=== PATIENT | male | born 1935 | race Caucasian/White ===

== ENCOUNTER 2019-02-22 10:22 | Emergency (ER) | payer OTHER ==
--- OUTSIDE RECORDS SUMMARY | 2019-02-22 10:24 | XMS REPORT ---
:1935 [facility] Address [address] [place] [address] Care Team Providers Name Role Phone Unavailable Unavailable Unavailable Payers Payer Name Policy Type Policy Number Effective Date Expiration Date Problems This patient has no known problems. Allergies, Adverse Reactions, Alerts Allergy Allergy Status Severity Reaction(s) Onset Inactive Treating Comments Name Type Date Date Clinician No Known DA Active U 2018-11 Allergies - 00:00:0 0 No Known DA Active U 2018-10 Allergies -23 00:00:0 0 No Known DA Active U 2018-07 Allergies - 00:00:0 0 Medications This patient has no known medications. Results Test Description Test Time Test Comments Text Results Atomic Results Result Comments BASIC METABOLIC PANEL 2018-12-10 07:05:00 Test Item Value Reference Range Comments SODIUM (test code=NA) 139 mmol/L 136-145 POTASSIUM (test code=K) 4.9 mmol/L 3.5-5.1 CHLORIDE (test code=CL) 104.0 mmol/L 98-107 CARBON DIOXIDE (test code=CO2) 28.1 mmol/L 21-32 GLUCOSE (test code=GLU) 123 mg/dL 70-110 BLOOD UREA NITROGEN (test 20 mg/dL 7-18 code=BUN) GLOMERULAR FILTRATION RATE (test 66.3 >60 Unit of measure: mL/min/1.73 code=GFR) [id number] Range:Healthy Adults >90 mL/min/1.73 m2 For Chronic Kidney Disease: Stage II Mild Decrease in GFR 60-90 Stage III Moderate Decrease in GFR 30-59 Stage IV Severe Decrease in GFR 15-29 Stage V Kidney Failure <15 CREATININE (test code=CREAT) 1.07 mg/dL 0.55-1.30 CALCIUM (test code=CA) 8.0 mg/dL 8.2-10.1 HGB [id number] 05:52:00 Test Item Value Reference Range Comments HEMOGLOBIN (test code=HGB) 11.9 g/dL 12-16 HEMATOCRIT (test code=HCT) 34.2 % 37-47 COMPREHENSIVE METABOLIC [id number] 15:28:00 Test Item Value Reference Range Comments SODIUM (test code=NA) 142 mmol/L 136-145 POTASSIUM (test code=K) 4.2 mmol/L 3.5-5.1 CHLORIDE (test code=CL) 103.0 mmol/L 98-107 CARBON DIOXIDE (test code=CO2) 29.8 mmol/L 21-32 GLUCOSE (test code=GLU) 103 mg/dL 70-110 BLOOD UREA NITROGEN (test 17 mg/dL 7-18 code=BUN) GLOMERULAR FILTRATION RATE 77.0 >60 Unit of measure: (test code=GFR) mL/min/1.73 [id number] Range:Healthy Adults >90 mL/min/1.73 m2 For Chronic Kidney Disease: Stage II Mild Decrease in GFR 60-90 Stage III Moderate Decrease in GFR 30-59 Stage IV Severe Decrease in GFR 15-29 Stage V Kidney Failure <15 CREATININE (test code=CREAT) 0.94 mg/dL 0.55-1.30 TOTAL PROTEIN (test code=PROT) 6.7 g/dL 6.4-8.2 ALBUMIN (test code=ALB) 4.2 g/dL 3.4-5.0 GLOBULIN (test code=GLOB) 2.5 g/dL 2.2-4.2 ALBUMIN/GLOBULIN RATIO (test 1.7 0.7-2.0 code=A/G) CALCIUM (test code=CA) 8.8 mg/dL 8.2-10.1 BILIRUBIN TOTAL (test 1.00 mg/dL 0.2-1.00 code=BILT) SGOT/AST (test code=AST) 24.0 U/L 15-37 SGPT/ALT (test code=ALT) 30.0 U/L 78 Please note new normal range. ALKALINE PHOSPHATASE TOTAL 175 U/L 46-116 (test code=ALKP) PROTHROMBIN [id number] 14:57:00 Test Item Value Reference Range Comments PROTHROMBIN TIME PATIENT 12.0 secs 10.1-12.5 (test code=PTP) INTERNATIONAL NORMAL RATIO 1.06 <2.0 RECOMMENDED THERAPEUTIC RANGE (test code=INR) FOR ORAL ANTICOAGULANTTREATMENT: CONDITION INRProphylaxis of venous thrombosis in 2.0 - 3.0 high-risk medical or surgical patientsTreatment of venous thrombosis 2.0 - 3.0Prevention of embolism 2.0 - 3.0Prevention of recurrent embolism, or 3.0 - 4.5 patients with mechanical prosthetic intravascular valves IS PATIENT ON ANTICOAGULANTS ? [facility] been notified if Patient is on Heparin Drip? NOIf Yes, orderCBC, OCCULT BLOOD, PT every other day NTHROMBOPLASTIN TIME [id number] 14:57:00 Test Item Value Reference Range Comments PTT ACTIVATED (test code=APTT) 29.9 secs 24.9-37.0 IS PATIENT ON ANTICOAGULANTS ? [facility] been notified if Patient is on Heparin Drip? NOIf Yes, orderCBC, OCCULT BLOOD, PT every other day NCBC W/AUTO [id number] 14:32:00 Test Item Value Reference Range Comments WHITE BLOOD CELL (test code=WBC) 4.0 K/mm3 5.7-10.5 RED BLOOD CELL (test code=RBC) 4.22 M/mm3 4.2-5.4 HEMOGLOBIN (test code=HGB) 13.6 g/dL 12-16 HEMATOCRIT (test code=HCT) 40.0 % 37-47 MEAN CELL VOLUME (test code=MCV) 95 fL 80-98 MEAN CELL HGB (test code=MCH) 32.2 pg 27-34 MEAN CELL HGB CONCENTRATION (test code=MCHC) 34.0 g/dL 30.8-34.1 RED CELL DISTRIBUTION WIDTH (test code=RDW) 13.0 % 11-16 PLT (test code=PLT) 129 K/mm3 130-400 MEAN PLATELET VOLUME (test code=MPV) 9.7 fL 8.9-12.1 NEUTROPHIL % (test code=NT%) 65.1 % 45-70 LYMPHOCYTE % (test code=LY%) 19.9 % 20-40 MONOCYTE % (test code=MO%) 12.4 % 3-10 EOSINOPHIL % (test code=EO%) 1.8 % 1-5 BASOPHIL % (test code=BA%) 0.5 % 0.0-1.1 NEUTROPHIL # (test code=NT#) 2.58 K/mm3 2.00-7.50 LYMPHOCYTE # (test code=LY#) 0.79 K/mm3 1.50-4.00 MONOCYTE # (test code=MO#) 0.49 K/mm3 0.2-0.8 EOSINOPHIL # (test code=EO#) 0.07 K/mm3 0.04-0.4 BASOPHIL # (test code=BA#) 0.02 K/mm3 0.02-0.10 MANUAL DIFF REQUIRED (test code=MDIFF) NO MANUAL DIFF NUCLEATED RED BLOOD CELL (test code=NRBC) 0 % 0-0 - MRI LW JNT W/O CONT [id number] 13:47:00 Patient Name: XIMENA SUMMERS Unit No: [id number] EXAMS: CPT CODE: [id number] MRI LW JNT W/[place] [id number] TECHNIQUE: Multiplanar, multisequence MRI of the left knee without contrast. COMPARISON: MR dated 08/08/2018 FINDINGS: Menisci: Interval postoperative changes of medial meniscectomy involving the posterior horn. There is residual/recurrent tear of the body and posterior horn. The posterior root is diminutive in appearance. No definite lateral meniscal tear visualized. Ligament and tendons : ACL and PCL are intact. There is increased signal of proximal MCL without definite tear. LCL is intact. Extensor mechanism is unremarkable. Cartilage/ bone: Multifocal patellar cartilage degeneration is similar, predominantly involving the patellar apex and lateral patellar facet. The trochlear cartilage is maintained. Broad high-grade cartilage loss of the medial compartment is demonstrated diffusely, significantly increased from prior exam with pronounced subchondral edema , preferentially involving the medial femoral condyle. Mild lateral compartment cartilage degeneration is similar. No acute fracture visualized. Other: Large joint effusion is present with evidence of synovitis. IMPRESSION: 1. Interval partial medial meniscectomy with residual/recurrent tear of the posterior horn and body of the medial meniscus. 2. Progression in broad high-grade cartilage degeneration of the medial compartment with pronounced subchondral edema of the medial femoral condyle. 3. Other chronic findings as described. at 1347 Reported and signed by: Luis M Emerson M.D. CC: Jaquelin Mobley MD; Raul Paz MD Technologist: LISSET DOMINGUEZ. RT(R ) Transcribed D/ (9612) t.CARMELR.RACHEALJ [facility] NAME: XIMENA SUMMERS [address] [place] [address] PHYS: GOMMU.Maame - Jaquelin Mobley : 1935 AGE: 83 SEX : M [place] [address] LOC: Y.MRI PHONE #: [phone] EXAM DATE: 10/09/2018STATUS: DEP CLI FAX #: [phone] RAD #: D/C DT PAGE1 Signed Report Patient Name: XIMENA SUMMERS Unit No: [id number] EXAMS: CPT CODE: [id number] MRI LW JNT W/[place] [id number] <Continued> Orig Print D/T: S: 2018 (2579) [facility] NAME: XIMENA SUMMERS [address] [place] [address] PHYS: GOMMU.Jaquelin Li : 1935 AGE: 83 SEX: [place]arius[place] [address] LOC: Y.MRI PHONE #: [phone] EXAM DATE: 10/09/2018 STATUS: DEP CLI FAX #: [phone] RAD #: D/C DT PAGE 2 Signed Report- MRI LW JNT W/O CONT [id number] 15 :55:00 Patient Name: XIMENA SUMMERS Unit No: [id number] EXAMS: CPT CODE: [id number] MRI LW JNT W/[place] [id number] MRI OF THE LEFT KNEE DIAGNOSIS: 1. Complex tear of the medial meniscus with horizontal tearing of the body through the tibial articular surface and of the posterior horn through the tibial articular surface as well as radial tear of the posterior root. 2. 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 There is subchondral cyst formation in the patella. Stress edema is seen in the medial tibial plateau. A moderate to large joint effusion is present without evidence for a loose body. COMMENT: COMPARISON: No prior exams available. Scans were performed in the sagittal, axial and coronal planes utilizing T1, spin density with fat saturation and T2-weighted pulse sequences. Bony and hyaline cartilage abnormalities are present as noted. The body and posterior horn of the medial meniscus is torn. There is degenerative signal in the anterior horn which may represent intrasubstance tearing. The lateral meniscus is within normal limits in appearance. No abnormality is seen involving the anterior or posterior cruciate or medial or lateral collateral ligaments. The quadriceps and patellar tendons are intact. There is distal quadriceps tendinosis. Fluid and edema are seen anterior to the patella and patellar tendon consistent with bursitis. at 1559 Reported and signed by: Bakari Alva MD CC: Jaquelin Mobley MD; Raul Paz MD Technologist: ANNA VICENTE MRI Transcribed D/ (6789) Eddie [facility] NAME: XIMENA SUMMERS [address] [facility] PHYS: GOMMU. - Jaquelin Mobley : 1935 AGE: 83 SEX: M [place], [place] [address] LOC: Y.MRI PHONE #: [phone] EXAM DATE: STATUS: REG CLI FAX #:[phone] RAD #: D/C DT PAGE 1 Signed Report Patient Name: XIMENA SUMMERS Unit No: [id number] EXAMS: CPT CODE : [id number] MRI LW JNT W/[place] [address] <Continued> Orig Print D/T: S: 08/08/2018 (1590) [facility]: XIMENA SUMMERS [address] [facility] PHYS: GOMMU. - Jaquelin Mobley : 1935 AGE: 83 SEX:M [place], [place] [address] LOC: Y.MRI PHONE #: [phone] EXAM DATE: 08/08/2018 STATUS: REG CLI FAX #: [phone] RAD #: D/C DT PAGE 2 Signed Report
--- NOTE | 2019-02-22 11:57 | ER ---
Nurse's Notes [facility] Name: Devaughn Moralez Age: 83 yrs Sex: Male : 1935 Arrival Date: 02/22/2019 Time: 10:25 Bed 19 Private MD: Raul Paz Diagnosis: Edema, unspecified;Tinea corporis Presentation: 02/22 10:31 Presenting complaint: Patient states: I think I have a ringworm on my left foot. jl7 Transition of care: patient was not received from another setting of care. Onset of symptoms was February 20, 2019. Risk Assessment: Do you want to hurt yourself or someone else? Patient reports no desire to harm self or others. Initial Sepsis Screen: Does the patient meet any 2 criteria? No. Patient's initial sepsis screen is negative. Does the patient have a suspected source of infection? No. Patient's initial sepsis screen is negative. Care prior to arrival: None. 10:31 Method Of Arrival: Ambulatory [facility] 10:31 Acuity: TERRENCE 4 jl7 Triage Assessment: 10:33 General: Appears in no apparent distress. uncomfortable, Behavior is calm, cooperative, jl7 appropriate for age. Pain: Denies pain. Historical: - Allergies: 10:33 No Known Allergies; jl7 - Home Meds: 10:33 finasteride oral oral [Active]; atorvastatin oral oral [Active]; tamsulosin 0.4 mg oral jl7 cp24 1 cap once daily [Active]; - PMHx: 10:33 High Cholesterol; jl7 - Immunization history:: Adult Immunizations up to date. - Social history:: Smoking status: Patient/guardian denies using tobacco. - Ebola Screening: : No symptoms or risks identified at this time. - Family history:: not pertinent. Screenin:15 Abuse screen: Denies threats or abuse. Denies injuries from another. Nutritional ph screening: No deficits noted. Tuberculosis screening: No symptoms or risk factors identified. Fall Risk None identified. Assessment: 11:10 General: Appears in no apparent distress. comfortable, Behavior is calm, cooperative, ph appropriate for age, Denies fever, feeling ill. Pain: Complains of pain in left leg. Neuro:. 11:10 Neuro: Level of Consciousness is awake, alert, obeys commands, Oriented to person, ph place, time, situation. Cardiovascular: Capillary refill < 3 seconds in bilateral fingers Edema is 1+ to right knee and right midcalf. Respiratory: Airway is patent Respiratory effort is even, unlabored, Denies shortness of breath. GI: No signs and/or symptoms were reported involving the gastrointestinal system. Derm: Skin is healthy with good turgor, Skin is pink, warm \T\ dry. Rash noted that is red, raised, on dorsum of left foot. Musculoskeletal: Circulation, motion, and sensation intact. Range of motion: intact in all extremities. Vital Signs: 10:33 BP 146 / 66; Pulse 79; Resp 17 S; Temp 97.1(TE); Pulse Ox 99% on R/A; Weight 103.42 kg jl7 (R); Height 6 ft. 0 in. (182.88 cm) (R); Pain 0/10; 11:55 BP 155 / 88; Pulse 72; Resp 18; Temp 97.8(O); Pulse Ox 96% ; mh5 10:33 Body Mass Index 30.92 (103.42 kg, 182.88 cm) 7 ED Course: 10:25 Patient arrived in ED. mr 10:26 Raul Paz MD is Private Physician. mr 10:27 Amauri Rascon MD is Attending Physician. eros 10:32 Triage completed. jl7 10:33 Arm band placed on right wrist. jl7 11:23 Paulina Jones, RN is Primary Nurse. ph 11:48 US Extremity Venous Unilateral Ltd In Process Unspecified. EDMS 11:56 Raul Paz MD is Referral Physician. eros 11:56 Patient has correct armband on for positive identification. Bed in low position. Call 5 light in reach. Side rails up X 1. Pulse ox on. NIBP on. 12:15 No provider procedures requiring assistance completed. Patient did not have IV access ph during this emergency room visit. Administered Medications: 12:16 Drug: Mycolog II 1 application Route: Topical; Site: affected area; ph 12:16 Follow up: Response: No adverse reaction ph Outcome: 11:56 Discharge ordered by . eros 12:17 Patient left the ED. ph 12:17 Discharged to home ambulatory. ph 12:17 Condition: good 12:17 Discharge instructions given to patient, Instructed on discharge instructions, follow up and referral plans. medication usage, Demonstrated understanding of instructions, follow-up care, medications, Prescriptions given X 1. Signatures: Dispatcher [employer] Amauri Brandt MD MD cha Rivera, Paulina Jama RN RN ph Martinez, Maria [facility] Mindi Barclay RN RN jl7 Corrections: (The following items were deleted from the chart) 19:16 11:10 Pain: Denies pain. [facility]
--- NOTE | 2019-02-22 11:58 | EDPHYS ---
Physician Documentation [facility] Name: Devaughn Moralez Age: 83 yrs Sex: Male : 1935 Arrival Date: 02/22/2019 Time: 10:25 Bed 19 Private MD: Raul Paz ED Physician Amauri Rascon HPI: 02/22 11:01 This 83 yrs old Male presents to ER via Ambulatory with complaints of eros Ringworm. 11:01 The patient presents with decreased range of motion, pain, swelling, tenderness. The eros complaints affect the lateral aspect of left thigh, lateral aspect of left knee, lateral aspect of left calf, left lateral ankle, lateral aspect of left foot, left quadriceps, left knee, left marie, anterior aspect of left ankle and dorsum of left foot. Context: The problem was sustained at an unknown site. Onset: The symptoms/episode began/occurred 2 week(s) ago. Modifying factors: The symptoms are alleviated by nothing. the symptoms are aggravated by nothing. Associated signs and symptoms: The patient has no apparent associated signs or symptoms. Severity of symptoms: At their worst the symptoms were mild, moderate, in the emergency department the symptoms have resolved. Historical: - Allergies: 10:33 No Known Allergies; jl7 - Home Meds: 10:33 finasteride oral oral [Active]; atorvastatin oral oral [Active]; tamsulosin 0.4 mg oral jl7 cp24 1 cap once daily [Active]; - PMHx: 10:33 High Cholesterol; jl7 - Immunization history:: Adult Immunizations up to date. - Social history:: Smoking status: Patient/guardian denies using tobacco. - Ebola Screening: : No symptoms or risks identified at this time. - Family history:: not pertinent. ROS: 11:01 Constitutional: Negative for fever, chills, and weight loss, Eyes: Negative for injury, eros pain, redness, and discharge, ENT: Negative for injury, pain, and discharge, Neck: Negative for injury, pain, and swelling, Cardiovascular: Negative for chest pain, palpitations, and edema, Respiratory: Negative for shortness of breath, cough, wheezing, and pleuritic chest pain, Abdomen/GI: Negative for abdominal pain, nausea, vomiting, diarrhea, and constipation, Back: Negative for injury and pain, : Negative for injury, bleeding, discharge, and swelling, Skin: Negative for injury, rash, and discoloration, Neuro: Negative for headache, weakness, numbness, tingling, and seizure, Psych: Negative for depression, anxiety, suicide ideation, homicidal ideation, and hallucinations, Allergy/Immunology: Negative for hives, rash, and allergies, Endocrine: Negative for neck swelling, polydipsia, polyuria, polyphagia, and marked weight changes, Hematologic/Lymphatic: Negative for swollen nodes, abnormal bleeding, and unusual bruising. 11:01 MS/extremity: Positive for decreased range of motion, pain, swelling, tenderness, of the left leg. Exam: 11:01 Constitutional: This is a well developed, well nourished patient who is awake, alert, eros and in no acute distress. Head/Face: Normocephalic, atraumatic. Eyes: Pupils equal round and reactive to light, extra-ocular motions intact. Lids and lashes normal. Conjunctiva and sclera are non-icteric and not injected. Cornea within normal limits. Periorbital areas with no swelling, redness, or edema. ENT: Nares patent. No nasal discharge, no septal abnormalities noted. Tympanic membranes are normal and external auditory canals are clear. Oropharynx with no redness, swelling, or masses, exudates, or evidence of obstruction, uvula midline. Mucous membranes moist. Neck: Trachea midline, no thyromegaly or masses palpated, and no cervical lymphadenopathy. Supple, full range of motion without nuchal rigidity, or vertebral point tenderness. No Meningismus. Chest/axilla: Normal chest wall appearance and motion. Nontender with no deformity. No lesions are appreciated. Cardiovascular: Regular rate and rhythm with a normal S1 and S2. No gallops, murmurs, or rubs. Normal PMI, no JVD. No pulse deficits. Respiratory: Lungs have equal breath sounds bilaterally, clear to auscultation and percussion. No rales, rhonchi or wheezes noted. No increased work of breathing, no retractions or nasal flaring. Abdomen/GI: Soft, non-tender, with normal bowel sounds. No distension or tympany. No guarding or rebound. No evidence of tenderness throughout. Back: No spinal tenderness. No costovertebral tenderness. Full range of motion. Skin: Warm, dry with normal turgor. Normal color with no rashes, no lesions, and no evidence of cellulitis. Neuro: Awake and alert, GCS 15, oriented to person, place, time, and situation. Cranial nerves II-XII grossly intact. Motor strength 5/5 in all extremities. Sensory grossly intact. Cerebellar exam normal. Normal gait. Psych: Awake, alert, with orientation to person, place and time. Behavior, mood, and affect are within normal limits. 11:01 Musculoskeletal/extremity: ROM: full active range of motion, full passive range of motion, Circulation is intact in all extremities. Sensation intact. Compartment Syndrome exam of affected extremity: is normal. DVT Exam: negative Homans' sign noted on exam, no appreciated bluish discoloration, no erythema, no increased warmth, pain, swelling, tenderness. Vital Signs: 10:33 BP 146 / 66; Pulse 79; Resp 17 S; Temp 97.1(TE); Pulse Ox 99% on R/A; Weight 103.42 kg jl7 (R); Height 6 ft. 0 in. (182.88 cm) (R); Pain 0/10; 11:55 BP 155 / 88; Pulse 72; Resp 18; Temp 97.8(O); Pulse Ox 96% ; mh5 10:33 Body Mass Index 30.92 (103.42 kg, 182.88 cm) jl7 MDM: 10:35 Patient medically screened. [facility] 11:03 Data reviewed: vital signs, nurses notes, lab test result(s), radiologic studies, [facility] doppler. 02/22 11:01 Order name: Extremity Venous Unilateral Ltd [facility] Administered Medications: 12:16 Drug: Mycolog II 1 application Route: Topical; Site: affected area; ph 12:16 Follow up: Response: No adverse reaction ph Disposition: 02/22/19 11:56 Discharged to Home. Impression: Edema, unspecified, Tinea corporis. - Condition is Stable. - Discharge Instructions: Edema, Body Ringworm, Edema, [id number], Peripheral Edema. - Prescriptions for Nystatin- Triamcinolone 100,000-0.1 unit/g-% Topical Cream - apply 1 application by TOPICAL route 2 times per day; 30 gram. - Medication Reconciliation Form, Thank You Letter, Antibiotic Education, Prescription Opioid Use form. - Follow up: Raul Paz; When: 2 - 3 days; Reason: Recheck today's complaints, Continuance of care, Re-evaluation by your physician. - Problem is new. - Symptoms have improved. Signatures: Dispatcher [employer] Amauri Brandt MD MD cha Hall, Patricia, RN RN ph Mindi Barclay RN RN jl7 Corrections: (The following items were deleted from the chart) 12:17 11:56 02/22/2019 11:56 Discharged to Home. Impression: Edema, unspecified; Tinea ph corporis. Condition is Stable. Discharge Instructions: Edema, Body Ringworm, Edema, [id number], Peripheral Edema. Prescriptions for Nystatin-Triamcinolone 100,000-0.1 unit/g-% Topical Cream - apply 1 application by TOPICAL route 2 times per day; 30 gram. and Forms are Medication Reconciliation Form, Thank You Letter, Antibiotic Education, Prescription Opioid Use. Follow up: Raul Paz; When: 2 - 3 days; Reason: Recheck today's complaints, Continuance of care, Re-evaluation by your physician. Problem is new. Symptoms have improved. eros
[2019-02-22] MEDS ORDERED: NYSTATIN/TRIAMCIN OINT 15 GM TOP ONE (12:00)
--- NOTE | 2019-02-22 12:21 | RAD REPORT ---
EXAM DESCRIPTION: US - Extremity Venous Uni Ltd - 02/22/2019 11:47 am COMPARISON: None. TECHNIQUE: Real-time sonographic evaluation of the left lower extremity deep venous system was perfo rmed. FINDINGS: Normal compressibility, flow augmentation, phasic flow and spontaneous flow are identified in the left lower extremity common femoral, superficial femoral, popliteal and posterior tibial vein s. No intraluminal filling defects seen. IMPRESSION: No DVT in the left lower extremity.
[2019-02-22 12:29] VITALS: BP 155/88; TEMP 97.8; O2SAT 96
== END 2019-02-22 12:17 | disposition home or self-care (01) ==
LOC: ER 10:22
DX: B35.4 Tinea corporis (principal); R60.0 Localized edema; E78.00 Pure hypercholesterolemia, unspecified
CPT/HCPCS: 93971; 99284

== ENCOUNTER 2020-09-21 15:19 | Emergency (ER) | payer OTHER ==
--- OUTSIDE RECORDS SUMMARY | 2020-09-21 15:23 | XMS REPORT | Continuity of Care Document ---
:1935 Author Organization [facility] t Address [address] [place] [address] Care Team Providers Name Role Phone Temo RAYMUNDO, A Attending Clinician Only, Test Attending Clinician Unavailable Doctor Unassigned, Name Attending Clinician Unavailable Pob, Lab Main Attending Clinician Unavailable Temo RAYMUNDO, A Admitting Clinician Payers Payer Name Policy Type Policy Number Effective Date Expiration Date S ource Problems This patient has no known problems. Allergies, Adverse Reactions, Alerts Allergy Allergy Status Severity Reaction(s) Onset Inactive Treating Comm ents Source Name Type Date Date Clinician No Known DA Active U 2018- [facility] [place] [facility] No Known DA Active U 2019-0 [facility] [place] No Known DA Active U 2019-0 [facility] 6-20 [place] [facility] Medications This patient has no known medications. Procedures This patient has no known procedures. Encounters Start End Encounter Admission Attending Care Care Encounter Source Date/Time Date/Time Type Type Clinicians Facility Department ID 2020-06-16 2020-06-[address] [facility] [id number] 11:25:00 14:16:00 Encounter Tone Alden [place] 350.1.13.10 [place] 4.2.7.2.686 Surgical [id number] [place] 07 2020-06-16 2020-06-16 Surgery [facility] [id number] 13:23:00 14:03:00 [place] 350.1.13.10 [place] 4.2.7.2.686 Surgical [id number] [place] 020 2020-06-15 2020-06-15 Laboratory Only, [facility] 1.2.840.114 [id number] 11:40:06 11:55:06 Only Test [place] 350.1.13.10 [place] 4.2.7.2.686 [place] [id number] 353 2020-06-15 2020-06-15 Orders Doctor [place] [id number] 00:00:00 00:00:00 Only Unassigned, K[place]ST[place] 350.1.13.10 [place] [facility] 4.2.7.2.686 [id number] 009 2020-06-02 2020-06-02 Surgery [facility] [id number] 13:10:00 13:52:00 [place] 350.1.13.10 [place] 4.2.7.2.686 Surgical [id number] [place] [address] 2020-06-02 2020-06-[address] [facility] [id number] 10:55:00 13:47:00 Encounter Tone A [place] 350.1.13.10 [place] 4.2.7.2.686 Surgical [id number] [place] [address] 2020-06-01 2020-06-01 Laboratory Only, [facility] 1.2.840.114 [id number] 11:58:15 12:13:15 Only Test [place] 350.1.13.10 [place] 4.2.7.2.686 [place] [id number] 353 2020-06-01 2020-06-01 Orders Doctor FIELD 1.2.840.114 [id number] 00:00:00 00:00:00 Only Unassigned, KRISTEN 350.1.13.10 [place] [facility] 4.2.7.2.686 [id number] 009 2020-05-10 2020-05-10 Press Technician Myrtle Castorena [facility] 1.2.840.114 [id number] 15:48:39 16:03:39 Visit Lab Main Luis Alberto 350.1.13.10 [place] 4.2.7.2.686 [place] [id number] [facility] 353 Building Results Test Description Test Time Test Comments Results Result Comments Source BASIC METABOLIC PANEL 2018-12-10 07:05:00 Test Item Value Reference Range Interpretation Comme nts SODIUM (test code = NA) 139 mmol/L 136-145 N POTASSIUM (test code = K) 4.9 mmol/L 3.5-5.1 N CHLORIDE (test code = CL) 104.0 mmol/L 98-107 N CARBON DIOXIDE (test code = 28.1 mmol/L 21-32 N CO2) GLUCOSE (test code = GLU) 123 mg/dL 70-110 H BLOOD UREA NITROGEN (test code 20 mg/dL 7-18 H = BUN) GLOMERULAR FILTRATION RATE 66.3 >60 U nit of measure: (test code = GFR) mL/min/1.7 3 [id number] Range:Healthy A dults >90 mL/min/1.73 m2 For Chronic Kidney Disease: Stage II Mi ld Decrease in GFR 60-9 0 Stage III Moderate Decrease in GFR 30-59 Stage IV Severe Decrease in GFR 15-29 Stage V Kidney Failure <15 CREATININE (test code = CREAT) 1.07 mg/dL 0.55-1.30 N CALCIUM (test code = CA) 8.0 mg/dL 8.2-10.1 L HGB [id number] 05:52:00 Test Item Value Reference Range Interpretation Comments HEMOGLOBIN (test code = HGB) 11.9 g/dL 12-16 L HEMATOCRIT (test code = HCT) 34.2 % 37-47 L COMPREHENSIVE METABOLIC [id number] 15:28:00 Test Item Value Reference Range Interpretation Comments SODIUM (test code = 142 mmol/L 136-145 N NA) POTASSIUM (test code = 4.2 mmol/L 3.5-5.1 N K) CHLORIDE (test code = 103.0 mmol/L 98-107 N CL) CARBON DIOXIDE (test 29.8 mmol/L 21-32 N code = CO2) GLUCOSE (test code = 103 mg/dL 70-110 N GLU) BLOOD UREA NITROGEN 17 mg/dL 7-18 N (test code = BUN) GLOMERULAR FILTRATION 77.0 >60 Unit o f measure: RATE (test code = GFR) mL/mi n/1.73 [id number] Range:Healthy Adults >90 mL/min/1.73 m2 For Chronic Kidney Disease: St age II Mild Decrease in GFR 60-90 St age III Moderate Decrease in GFR 30-59 Stage IV Severe Decre ase in GFR 15- 29 Stage V Kidney Failure <15 CREATININE (test code 0.94 mg/dL 0.55-1.30 N = CREAT) TOTAL PROTEIN (test 6.7 g/dL 6.4-8.2 N code = PROT) ALBUMIN (test code = 4.2 g/dL 3.4-5.0 N ALB) GLOBULIN (test code = 2.5 g/dL 2.2-4.2 N GLOB) ALBUMIN/GLOBULIN RATIO 1.7 0.7-2.0 N (test code = A/G) CALCIUM (test code = 8.8 mg/dL 8.2-10.1 N CA) BILIRUBIN TOTAL (test 1.00 mg/dL 0.2-1.00 N code = BILT) SGOT/AST (test code = 24.0 U/L 15-37 N AST) SGPT/ALT (test code = 30.0 U/L 12-78 N Please note new ALT) normal range. ALKALINE PHOSPHATASE 175 U/L 46-116 H TOTAL (test code = ALKP) PROTHROMBIN [id number] 14:57:00 Test Item Value Reference Range Interpretation Comments PROTHROMBIN TIME 12.0 secs 10.1-12.5 N PATIENT (test code = PTP) INTERNATIONAL NORMAL 1.06 <2.0 RECOMME NDED THERAPEUTIC RATIO (test code = RANGE FOR ORAL INR) ANTICOAGULANTTR EATMENT: CONDI TION INRProphylaxis of venous thrombos is in 2.0 - 3.0 high-risk medic al or surgical patientsTreatme nt of venous thrombos is 2.0 - 3.0Prevention o f embolism 2.0 - 3.0Prevention o f recurrent embol ism, or 3.0 - 4. 5 patients with mechanical pros thetic intravascular v tompkins IS PATIENT ON ANTICOAGULANTS ? NHas Lab been notified if Patient is on Heparin Drip? NOIf Yes, orderCBC, OCCULT BLOOD, PT every other day NTHROMBOPLASTIN TIME [id number] 14:57:00 Test Item Value Reference Range Interpretation Comments PTT ACTIVATED (test code = APTT) 29.9 secs 24.9-37.0 N IS PATIENT ON ANTICOAGULANTS ? NHas Lab been notified if Patient is on Heparin Drip? NOIf Yes, orderCBC, OCCULT BLOOD, PT every other day NCBC W/AUTO DIFF 2018-11-11 14:32:00 Test Item Value Reference Range Interpretation Comments WHITE BLOOD CELL (test code = WBC) 4.0 K/mm3 5.7-10.5 L RED BLOOD CELL (test code = RBC) 4.22 M/mm3 4.2-5.4 N HEMOGLOBIN (test code = HGB) 13.6 g/dL 12-16 N HEMATOCRIT (test code = HCT) 40.0 % 37-47 N MEAN CELL VOLUME (test code = MCV) 95 fL 80-98 N MEAN CELL HGB (test code = MCH) 32.2 pg 27-34 N MEAN CELL HGB CONCENTRATION (test 34.0 g/dL 30.8-34.1 N code = MCHC) RED CELL DISTRIBUTION WIDTH (test 13.0 % 11-16 N code = RDW) PLT (test code = PLT) 129 K/mm3 130-400 L MEAN PLATELET VOLUME (test code = 9.7 fL 8.9-12.1 N MPV) NEUTROPHIL % (test code = NT%) 65.1 % 45-70 N LYMPHOCYTE % (test code = LY%) 19.9 % 20-40 L MONOCYTE % (test code = MO%) 12.4 % 3-10 H EOSINOPHIL % (test code = EO%) 1.8 % 1-5 N BASOPHIL % (test code = BA%) 0.5 % 0.0-1.1 N NEUTROPHIL # (test code = NT#) 2.58 K/mm3 2.00-7.50 N LYMPHOCYTE # (test code = LY#) 0.79 K/mm3 1.50-4.00 L MONOCYTE # (test code = MO#) 0.49 K/mm3 0.2-0.8 N EOSINOPHIL # (test code = EO#) 0.07 K/mm3 0.04-0.4 N BASOPHIL # (test code = BA#) 0.02 K/mm3 0.02-0.10 N MANUAL DIFF REQUIRED (test code = NO MANUAL DIFF MDIFF) NUCLEATED RED BLOOD CELL (test 0 % 0-0 N code = NRBC) - MRI LW JNT W/O CONT [id number] 13:47:00 Patient Name: XIMENA SUMMERS Unit No: [id number] EXAMS: CPT CODE: [id number] [place] LW JNT W/[place] [address] TECHNIQUE: Multiplanar, multisequence MRI of the left knee without contrast. COMPARISON: MR dated 08/08/2018 FINDINGS: Menisci: Interval postoperative changes of medial meniscectomy involving the posterior horn. There is residual/recurrent tear of the body and posterior horn. The posterior root is diminutive in appearance. No definite lateral meniscal tear visualized. Ligament and tendons: ACL and PCL are intact. There is increased signal of proximal MCL without definite tear. LCL is intact. Extensor mechanism is unremarkable. Cartilage/ bone: Multifocal patellar cartilage degeneration is similar, predominantly involving the patellar apex and lateral patellar facet. The trochlear cartilage is maintained. Broad high-grade cartilage loss of the medial compartment is demonstrated diffusely, significantly increased from prior exam with pronounced subchondral edema, preferentially involving the medial femoral condyle. Mild [...] 3. Other chronic findings as described. at 8366 Reported and signed by: Luis M Emerson M.D. CC: Jaquelin Mobley MD; Raul Paz MD Technologist: LISSET DOMINGUEZ. RT(R) Transcribed D/ (8171) tVILMA.RADHA [facility] NAME: XIMENA SUMMERS [address] [facility] PHYS: Jaquelin Johnson : 1935 AGE: 83 SEX: M [place], [place] [address] LOC: Y.MRI PHONE #: [phone] EXAM DATE: 10/09/2018STATUS: DEP CLI FAX #: [phone] RAD #: D/C DT PAGE1 Signed Report Patient Name: XIMENA SUMMERS Unit No: [id number] EXAMS: CPT CODE: [id number] MRI LW JNT W/[place] [id number] <Continued> Orig Print D/T: S: 10/10/2018 (1350) [facility] NAME: XIMENA SUMMERS [address] [facility] PHYS: Jaquelin Johnson : AGE: 83 SEX: M [place], [place] [address] LOC: Y.MRI PHONE #: [phone] EXAM DATE: 10/09/2018 STATUS: DEP CLI FAX #: [phone] RAD #: D/C DT PAGE 2 Signed Report- MRI LW JNT W/O CONT [id number] 15:55:00 Patient Name: XIMENA SUMMERS Unit No: [id number] EXAMS: CPT CODE: [id number] MRI LW JNT W/[place] [address] MRI OF THE LEFT KNEE DIAGNOSIS: 1. [...] and patellar tendon consistent with bursitis. at 1555 Reported and signed by: Bakari Alva MD CC: Jaquelin Mobley MD; Raul Paz MD Technologist: ANNA VICENTE MRI Transcribed D/ (4895) t.SHASHANK [facility] NAME: XIMENA SUMMERS [address] [facility] PHYS: KARO ClarkeJaquelin branch Dariusz : 1935 AGE: 83 SEX: M [place] [address] LOC: Y.MRI PHONE #: [phone] EXAM DATE: 08/08/2018 STATUS: REG CLI FAX #:[phone] RAD #: D/C DT PAGE 1 Signed Report Patient Name: XIMENA SUMMERS Unit No: [id number] EXAMS: CPT CODE: [id number] MRI LW JNT W/[place] [address] <Continued> Orig Print D/T: S: 08/08/2018 (7264) [facility]: X[facility] SUMMERS [address] [place] [address] PHYS: KARO Mccurdy Jaquelin Mobley : 1935 AGE: 83 SEX:M [place], [place] [address] LOC: Y.MRI PHONE #: [phone] EXAM DATE: 08/08/2018 STATUS: REG CLI FAX #: [phone] RAD #: D/C DT PAGE 2 Signed Report
--- NOTE | 2020-09-21 16:03 | RAD REPORT ---
EXAM DESCRIPTION: CT - Head C Spine Mpr Wo Con - 09/21/2020 3:48 pm CLINICAL HISTORY: Head and neck injury status post fall. Head and neck pain COMPARISON: None. TECHNIQUE: Computed axial tomography of the head and cervical spine was obtained. Sagittal and coronal reconstruction was performed. All CT scans are performed using dose optimization technique as appropriate and may include automated exposure control or mA/KV adjustment according to patient size. FINDINGS: Beam hardening artifact limits evaluation of the posterior fossa An intracranial bleed is not seen. The ventricles are normal in caliber. An extra-axial fluid collect ion is not noted.Fluid within the visualized sinuses and mastoids is not seen A cervical fracture is not visualized. No dislocation is noted. Spondylosis involves the cervical spi ne IMPRESSION: No acute intracranial abnormality is seen. A cervical fracture is not visualized. If the patient continues to have symptoms to suggest intracra nial /spinal cord pathology then MRI would be recommended
--- NOTE | 2020-09-21 16:17 | EDPHYS ---
Physician Documentation [facility] Name: Devaughn Moralez Age: 85 yrs Sex: Male : 1935 Arrival Date: 09/21/2020 Time: 15:27 Bed 5 Private MD: ED Physician Amauri Rascon HPI: 09/21 16:09 This 85 yrs old Male presents to ER via EMS with complaints of Fall injury. jr8 16:09 Trauma demographics: Location of Injury: The injury occurred outdoors. Mechanism of jr8 injury: Fall: the patient fell from a standing position. Associated injuries: The patient sustained injury to the head, hematoma, pain, swelling, tenderness. Onset: The symptoms/episode began/occurred acutely, today. The patient has not experienced similar symptoms in the past. The patient has not recently seen a physician. Is an 85-year-old male who was at [employer] when [facility]. Positive loss of consciousness on scene. Patient was brought in by EMS after being called. Patient had C-spine precautions and immobilization on backboard. Patient is alert and oriented x4 upon arrival in no acute distress. Currently complains of headache and head pain only.. Historical: - Home Meds: 15:46 atorvastatin Oral [Active]; finasteride Oral [Active]; tamsulosin 0.4 mg Oral cp24 1 tr6 cap once daily [Active]; - PMHx: 15:46 High Cholesterol; tr6 - Immunization history:: Adult Immunizations up to date, Client reports receiving the 2nd dose of the Covid vaccine. - Social history:: Smoking status: unknown. ROS: 16:09 Eyes: Negative for injury, pain, redness, and discharge, ENT: Negative for injury, jr8 pain, and discharge, Neck: Negative for injury, pain, and swelling, Cardiovascular: Negative for chest pain, palpitations, and edema, Respiratory: Negative for shortness of breath, cough, wheezing, and pleuritic chest pain, Abdomen/GI: Negative for abdominal pain, nausea, vomiting, diarrhea, and constipation, Back: Negative for injury and pain, MS/Extremity: Negative for injury and deformity. 16:09 Skin: Positive for abrasion(s). 16:09 Neuro: Positive for headache, loss of consciousness. Exam: 16:09 Eyes: Pupils equal round and reactive to light, extra-ocular motions intact. Lids and jr8 lashes normal. Conjunctiva and sclera are non-icteric and not injected. Cornea within normal limits. Periorbital areas with no swelling, redness, or edema. ENT: Nares patent. No nasal discharge, no septal abnormalities noted. Tympanic membranes are normal and external auditory canals are clear. Oropharynx with no redness, swelling, or masses, exudates, or evidence of obstruction, uvula midline. Mucous membranes moist. Neck: Trachea midline, no thyromegaly or masses palpated, and no cervical lymphadenopathy. Supple, full range of motion without nuchal rigidity, or vertebral point tenderness. No Meningismus. Chest/axilla: Normal chest wall appearance and motion. Nontender with no deformity. No lesions are appreciated. Cardiovascular: Regular rate and rhythm with a normal S1 and S2. No gallops, murmurs, or rubs. Normal PMI, no JVD. No pulse deficits. Respiratory: Lungs have equal breath sounds bilaterally, clear to auscultation and percussion. No rales, rhonchi or wheezes noted. No increased work of breathing, no retractions or nasal flaring. Abdomen/GI: Soft, non-tender, with normal bowel sounds. No distension or tympany. No guarding or rebound. No evidence of tenderness throughout. Back: No spinal tenderness. No costovertebral tenderness. Full range of motion. Skin: Warm, dry with normal turgor. Normal color with no rashes, no lesions, and no evidence of cellulitis. Abrasion noted to the left lateral knee MS/ Extremity: Pulses equal, no cyanosis. Neurovascular intact. Full, normal range of motion. Neuro: Awake and alert, GCS 15, oriented to person, place, time, and situation. Cranial nerves II-XII grossly intact. Motor strength 5/5 in all extremities. Sensory grossly intact. 16:09 Head/face: Noted is abrasion(s), that are mild, of the forehead, hematoma, that is moderate, of the forehead. Vital Signs: 15:33 BP 187 / 95; Pulse 79; Resp 24; Pulse Ox 97% on R/A; ap3 15:41 BP 170 / 82; Pulse 83; Resp 18; Temp 97.9; Pulse Ox 97% on R/A; tr6 MDM: 15:30 Patient medically screened. jr8 16:09 Data reviewed: vital signs, nurses notes, radiologic studies, CT scan. Data jr8 interpreted: Pulse oximetry: on room air is 97 %. Interpretation: normal. Counseling: I had a detailed discussion with the patient and/or guardian regarding: the historical points, exam findings, and any diagnostic results supporting the discharge/admit diagnosis, radiology results, the need for outpatient follow up, a family practitioner, to return to the emergency department if symptoms worsen or persist or if there are any questions or concerns that arise at home. ED course: Patient is remained hemodynamically stable while in the emergency room. Pain mild at most. CT scan did not reveal any intracranial abnormality or cervical spine finding. We will send patient home on close return precautions for head injury. Discussed with him that he needs to follow-up with primary care in the next couple days.. 09/21 15:31 Order name: CT Head C Spine; Complete Time: 16:08 jr8 Administered Medications: No medications were administered Disposition: 09/22 07:05 Co-signature as Attending Physician, Amauri Rascon MD I agree with the assessment and eros plan of care. Disposition Summary: 09/21/20 16:17 Discharge Ordered Location: Home jr8 Problem: new jr8 Symptoms: have improved jr8 Condition: Stable jr8 Diagnosis - Unspecified superficial injury of other part of head, initial encounter jr8 Followup: jr8 - With: Private Physician - When: 2 - 3 days - Reason: Recheck today's complaints, Continuance of care, Re-evaluation by your physician Discharge Instructions: - Discharge Summary Sheet jr8 - Concussion, Adult jr8 - Head Injury, Adult jr8 Forms: - Medication Reconciliation Form jr8 - Thank You Letter jr8 - Antibiotic Education jr8 - Prescription Opioid Use jr8 Signatures: Dispatcher [employer] EDAmauri Hart MD MD cha Roszak, Josh, PA PA jr8 Nereida Ramirez, MARTY RN tr6
--- NOTE | 2020-09-21 16:17 | ER ---
Nurse's Notes [facility] [place] [facility] Name: Devaughn Moralez Age: 85 yrs Sex: Male : 1935 Arrival Date: 09/21/2020 Time: 15:27 Bed 5 Private MD: Diagnosis: Unspecified superficial injury of other part of head, initial encounter Presentation: 09/21 15:34 Ebola Screen: No symptoms or risks identified at this time. ap3 15:34 Method Of Arrival: EMS: [facility] ap3 15:41 Chief complaint: EMS states: s/p mechanical fall, +LOC, -blood thinners. pt not sure tr6 exactly what happens. pt states that he thinks he missed a step and then fell. pt aox3. Coronavirus screen: At this time, unable to obtain information related to travel outside the [place] At this time, the client does not indicate any symptoms associated with coronavirus-19. Ebola Screen: No symptoms or risks identified at this time. Initial Sepsis Screen: Does the patient meet any 2 criteria? No. Patient's initial sepsis screen is negative. Does the patient have a suspected source of infection? No. Patient's initial sepsis screen is negative. Risk Assessment: Do you want to hurt yourself or someone else? Patient reports no desire to harm self or others. Onset of symptoms is unknown. 15:41 Method Of Arrival: EMS: [facility] tr6 15:41 Acuity: TERRENCE 2 tr6 Triage Assessment: 15:43 General: Appears in no apparent distress. comfortable, Behavior is calm, cooperative, tr6 appropriate for age. Pain: Complains of pain in head. EENT: laceration to left eyebrow, pt lost front tooth. Neuro: No deficits noted. Level of Consciousness is awake, alert, obeys commands, Oriented to person, place, time, situation, Appropriate for age Brake Operator Helper are equal bilaterally Moves all extremities. Speech is normal. Cardiovascular: Capillary refill < 3 seconds Pulses are 2+ in right radial artery, right posterior tibial artery, right dorsalis pedis artery, left radial artery, left posterior tibial artery and left dorsalis pedis artery Rhythm is regular. Respiratory: No deficits noted. GI: No deficits noted. : No deficits noted. Derm: Skin is intact, Skin is pink, warm \T\ dry. Musculoskeletal: No deficits noted. Injury Description: Head injury sustained to left eye Laceration sustained to left eye. Historical: - Home Meds: 15:46 atorvastatin Oral [Active]; finasteride Oral [Active]; tamsulosin 0.4 mg Oral cp24 1 tr6 cap once daily [Active]; - PMHx: 15:46 High Cholesterol; tr6 - Immunization history:: Adult Immunizations up to date, Client reports receiving the 2nd dose of the Covid vaccine. - Social history:: Smoking status: unknown. Screenin:32 Abuse screen: Denies threats or abuse. Nutritional screening: No deficits noted. ap3 Tuberculosis screening: No symptoms or risk factors identified. Fall Risk Fall in past 12 months (25 points). No secondary diagnosis (0 pts). IV access (20 points). Ambulatory Aid- None/Bed Rest/Nurse Assist (0 pts). Gait- Normal/Bed Rest/Wheelchair (0 pts) Mental Status- Oriented to own ability (0 pts). Total Tavares Fall Scale indicates Low Risk Score (25-44 pts). Fall prevention measures have been instituted. Side Rails Up X 2 Placed close to Nursing Station Frequent Obs/Assesments occuring As available Patient and Family Educated on Fall Prevention Program and strategies. Assessment: 16:06 Reassessment: see triage assessment. tr6 16:10 Reassessment: c collar removed by PA. tr6 16:34 Reassessment: ice pack applied to left eye brow. tr6 Vital Signs: 15:33 BP 187 / 95; Pulse 79; Resp 24; Pulse Ox 97% on R/A; ap3 15:41 BP 170 / 82; Pulse 83; Resp 18; Temp 97.9; Pulse Ox 97% on R/A; tr6 ED Course: 15:27 Patient arrived in ED. tr6 15:30 Isaac Bustamante PA is PHCP. jr8 15:30 Amauri Rascon MD is Attending Physician. jr8 15:30 Inserted saline lock: 20 gauge in right antecubital area, using aseptic technique. ap3 Blood collected. 15:33 Patient has correct armband on for positive identification. Bed in low position. Call ap3 light in reach. Side rails up X2. enamel cracker on. Pulse ox on. NIBP on. Door closed. Noise minimized. 15:40 Nereida Ramirez, RN is Primary Nurse. tr6 15:43 Triage completed. tr6 15:46 No provider procedures requiring assistance completed. Patient maintains SpO2 tr6 saturation greater than 95% on room air. 15:47 Patient placed in the treatment room, on a stretcher. c collar remains in place. tr6 15:49 CT Head C Spine In Process Unspecified. EDMS 17:14 IV discontinued, intact, bleeding controlled, No redness/swelling at site. Pressure ap3 dressing applied. Administered Medications: No medications were administered Outcome: 16:17 Discharge ordered by . [place] 17:14 Discharged to home via wheelchair. ap3 17:14 Condition: good 17:14 Discharge instructions given to patient, Instructed on discharge instructions, follow up and referral plans. wound care, Demonstrated understanding of instructions, follow-up care, wound care. 17:14 Patient left the ED. ap3 Signatures: Dispatcher [employer] EDMS Isaac Bustamante PA PA jr8 Alberta Prince RN RN ap3 Nereida Ramirez, RN RN tr6 Corrections: (The following items were deleted from the chart) 15:32 15:25 Inserted saline lock: 20 gauge in right antecubital area, using aseptic ap3 technique. Blood collected. ap3
[2020-09-21 17:22] VITALS: O2SAT 97
[2020-09-21 17:24] VITALS: BP 170/82; TEMP 97.9
== END 2020-09-21 17:14 | disposition home or self-care (01) ==
LOC: ER 15:19
DX: S00.83XA Contusion of other part of head, initial encounter (principal); W01.198A Fall on same level from slipping, tripping and stumbling with subsequent striking against other object, initial encounter; Y92.89 Other specified places as the place of occurrence of the external cause; E78.00 Pure hypercholesterolemia, unspecified
CPT/HCPCS: 70450; 72125; 99285

== ENCOUNTER → 2021-05-26 | Day surgery (SDC) | payer OTHER ==
[~2021-05-26] MED LIST: BUPIVACAINE 0.5% PF 10 ML VIAL ONE; CEFAZOLIN SODIUM 1 GM/VIAL ONE; FENTANYL CITR 100 MCG/2 ML ONE; GLYCOPYRROLATE 0.2 MG/ML SYR ONE; LIDOCAINE 1% MPF 5 ML VIAL ONE; LIDOCAINE 2% MPF 5 ML VIAL ONE; ONDANSETRON 4 MG/2 ML VIAL ONE; Phenylephrine HCl 10 MG/ML 1 ML VIAL ONE; Ringers Lactate 1,000 ML IV ONE; TETANUS & DIPHTHERIA TOX,ADULT 0.5 ML VIAL ONE; WATER FOR INJ,STERILE 10 ML ONE; dexAMETHasone 10 MG/ML VIAL ONE; propofoL 200 MG/20 ML VIAL IV ONE
--- OUTSIDE RECORDS SUMMARY | 2021-05-26 09:57 | XMS REPORT | Continuity of Care Document ---
:1935 Author Organization [facility] t Address [address] [place] [address] Care Team Providers Name Role Phone [facility] Primary Care Physician Alden PLASCENCIA Attending Clinician Unavailable Carlos FERGUSON, T Attending Clinician Unavailable Only, Db Test Attending Clinician Unavailable Unknown Attending Clinician Unavailable Glen ALDANAP Attending Clinician GLEN Attending Clinician Unavailable Temo RAYMUNDO, A Attending Clinician Only, Test Attending Clinician Unavailable Doctor Unassigned, Name Attending Clinician Unavailable Dariusz JONES Attending Clinician Unavailable Pob, Lab Main Attending Clinician Unavailable Alden PLASCENCIA Admitting Clinician Unavailable Temo RAYMUNDO, A Admitting Clinician Payers Payer Name Policy Type Policy Number Effective Date Expiration Date S ourandrey [employer] MEDICARE ADV [id number] 2020 00:00:00 Problems This patient has no known problems. Allergies, Adverse Reactions, Alerts Allergy Allergy Status Severity Reaction(s) Onset Inactive Treating Comm ents Source Name Type Date Date Clinician No Known DA Active U 2018-02 [facility]21 [place] [facility] No Known DA Active U [facility] [place] No Known DA Active U 2018- [facility] 6-20 [place] [facility] NO KNOWN Drug Active Univers ALLERGIE Class ity of S [facility] Social History Social Habit Start Date Stop Date Quantity Comments Source Exposure to Yes [facility] SARS-CoV-2 (event) Medica l Branch Tobacco use and 2020-06-15 2020-06-15 Never used [facility] exposure 00:00:00 00:00:00 [facility] Sex Assigned At [birth year] [facility] 00:00:00 00:00:00 [facility] Branch Smoking Status Start Date Stop Date Source Never smoker [facility] Unknown if ever smoked [facility] Medications Ordered Filled Start Stop Current Ordering Indication Dosage Frequency Signature Comments Components Source Medication Medication Date Date Medication? Clinician (SIG) Name Name mydriatic 2020- No .5mL 0.5 mL, Univ ers #5 06-16 Right Eye, ity of ophthalmic 16:30: 16:41 ONCE, 1 [place] as solution 00 :00 dose, Wed Medica l 0.5 mL 06/16/20 at Branch syringe 1130, Routine, DSU Pre-op lactated 2020- No 1000mL at 42 Unive rs ringers IV 06-16 mL/hr, ity of infusion 16:30: 16:41 1,000 mL, [place] as 1,000 mL 00 :00 IV Medical Infusion, Branch ONCE, 1 dose, 06/16/20 at 1130, Routine, DSU Pre-op mydriatic 2020- No .5mL 0.5 mL, Univ ers #5 06-16 Right Eye, ity of ophthalmic 16:30: 16:41 ONCE, 1 [place] as solution 00 :00 dose, Wed Medica l 0.5 mL 06/16/20 at Branch syringe 1130, Routine, DSU Pre-op lactated 2020- No 1000mL at 42 Unive rs ringers IV 06-16 mL/hr, ity of infusion 16:30: 16:41 1,000 mL, [place] as 1,000 mL 00 :00 IV Medical Infusion, Branch ONCE, 1 dose, 06/16/20 at 1130, Routine, DSU Pre-op tamsulosin 0 Yes Take by Uni vers 0.4 mg 24 4-14 mouth ity of hr capsule 18:51: daily. [place] [address] Medical Branch finasteride 2020-0 Yes 5mg Take 5 mg U nivers 5 mg tablet 4-14 by mouth ity of 18:51: daily. [place] [address] Medical Branch atorvastati 0 Yes 20mg Take 20 mg Univers n 20 mg 4-14 by mouth ity of tablet 18:51: at [place] [address] bedtime. Medical Branch LORazepam 1 0 Yes 1mg Take 1 mg U nivers mg tablet 4-14 by mouth 4 ity of 18:51: (four) [place] 59 times Medical daily as Branch needed for Anxiety or Agitation. Brimonidine 2020-[address] in U nivers -Timolol 4-14 each eye. ity of (COMBIGAN) 18:51: [place] 0.2-0.5 % Medical ophthalmic Branch drops tamsulosin 0 Yes Take by Uni vers 0.4 mg 24 4-14 mouth ity of hr capsule 18:51: daily. [place] [address] Medical Branch finasteride 0 Yes 5mg Take 5 mg U nivers 5 mg tablet 4-14 by mouth ity of 18:51: daily. [place] [address] Medical Branch atorvastati 0 Yes 20mg Take 20 mg Univers n 20 mg 4-14 by mouth ity of tablet 18:51: at [place] [address] bedtime. Medical Branch LORazepam 1 Yes 1mg Take 1 mg U nivers mg tablet 4-14 by mouth 4 ity of 18:51: (four) [place] 59 times Medical daily as Branch needed for Anxiety or Agitation. Brimonidine 2020-[address] in U nivers -Timolol 4-14 each eye. ity of (COMBIGAN) 18:51: [place] 0.2-0.5 % 59 Medical ophthalmic Branch drops sodium 2020-0 Yes PRN, Univers chloride 4-14 Starting ity of (NS) 18:17: Wed [place] injection 00 06/02/20 at [facility] dariusz 1317, Branch Until Discontinu ed, Routine, Intra-op neomycin-po 2020-0 Yes PRN, Univer s lymyxin-dex 4-14 Starting ity of amethasone 18:17: Sun [place] (MAXITROL) 00 06/02/20 at [facility] ical 3.5 1317, Branch mg/g-10,000 Until unit/g-0.1 Discontinu % ed, ophthalmic Routine, ointment Intra-op sodium 2020- No PRN, Univers chloride 06-02 Starting ity of (NS) 18:17: 20:57 Wed [place] injection 00 :02 06/02/20 at [facility] 1317, Branch Until Sun06/02/20 at 1557, Routine, Intra-op neomycin-po 2020- No PRN, Unive rs lymyxin-dex 06-02 Starting ity of amethasone 18:17: 20:57 Sun [place] (MAXITROL) 00 :02 06/02/20 at [facility] ical 3.5 1317, Branch mg/g-10,000 Until Sun unit/g-0.1 06/02/20 at % 1557, ophthalmic Routine, ointment Intra-op eye block Yes PRN, Univers syringe 06-02 Starting ity o f mL 18:16: Sun [place] 00 06/02/20 at [facility] 1316, Branch Until Discontinu ed, Intra-op EPINEPHrine Yes PRN, Univer s 1:1,000 (1 06-02 Starting ity o f mg/mL) 18:16: Sun (ADRENALIN) 00 06/02/20 at Mi dical injection 1316, Branch Until Discontinu ed, Routine, Intra-op DUOVISC Yes PRN, Univers (DUOVISC 06-02 Starting ity of VISCO 18:16: Sun [place] ELASTIC) 3 00 06/02/20 at [facility] ical %-4 %(0.5 1316, Branch mL) 1 % Until (0.55 mL) Discontinu intraocular ed, injection Routine, Intra-op eye block 2020- No PRN, Univers syringe 11 06-02 Starting ity of mL 18:16: 20:57 [facility] [place] 00 :02 06/02/20 at [facility] 1316, Branch Until Sun06/02/20 at 1557, Intra-op EPINEPHrine 2020- No PRN, Unive rs 1:1,000 (1 06-02 Starting ity of mg/mL) 18:16: 20:57 Wed [place] (ADRENALIN) 00 :02 06/02/20 at Mi dical injection 1316, Branch Until Sun06/02/20 at 1557, Routine, Intra-op DUOVISC 2020- No PRN, Univers (DUOVISC 06-02 Starting ity of VISCO 18:16: 20:57 Wed [place] ELASTIC) 3 00 :02 06/02/20 at [facility] ical %-4 %(0.5 1316, Branch mL) 1 % Until Wed (0.55 mL) 06/02/20 at intraocular 1557, injection Routine, Intra-op dexamethaso Yes PRN, Univer s ne 06-02 Starting ity of (DECADRON 18:15: Wed [place] PHOSPHATE) 00 06/02/20 at Med ical injection 1315, Branch Until Discontinu ed, Routine, Intra-op ceFAZolin Yes PRN, Univers (ANCEF) 06-02 Starting ity of injection 18:15: Wed [place] 00 06/02/20 at Medical 1315, Branch Until Discontinu ed, KI, Intra-op carbachoL Yes PRN, Univers (MIOSTAT) 06-02 Starting ity of 0.01 % 18:15: Wed [place] intraocular 00 06/02/20 at Mi dical injection 1315, Branch Until Discontinu ed, Routine, Intra-op dexamethaso 2020- No PRN, Unive rs ne 06-02 Starting ity of (DECADRON 18:15: 20:57 Wed [place] PHOSPHATE) 00 :02 06/02/20 at Med ical injection 1315, Branch Until Sun06/02/20 at 1557, Routine, Intra-op ceFAZolin 2020- No PRN, Univers (ANCEF) 06-02 Starting ity of injection 18:15: 20:57 Wed [place] 00 :02 06/02/20 at Medical 1315, Branch Until Sun06/02/20 at 1557, KI, Intra-op carbachoL 2020- No PRN, Univers (MIOSTAT) 06-02 Starting ity o f 0.01 % 18:15: 20:57 Wed [place] intraocular 00 :02 06/02/20 at Mi dical injection 1315, Branch Until Sun06/02/20 at 1557, Routine, Intra-op balanced Yes PRN, Univers salt irrig 06-02 Starting ity o f soln comb1 18:14: Sun (BSS PLUS) 00 06/02/20 at [facility] ical ophthalmic 1314, Branch solution Until 500 mL bag Discontinu ed, Routine, Intra-op balanced 2020- No PRN, Univers salt irrig 06-02 Starting ity of soln comb1 18:14: 20:57 Sun [place] (BSS PLUS) 00 :02 06/02/20 at [facility] ica ophthalmic 1314, Branch solution Until Wed 500 mL bag 06/02/20 at 1557, Routine, Intra-op water for Yes PRN, Univers irrigation 06-02 Starting ity o f irrigation 18:07: Sun [place] solution 00 06/02/20 at Medic al 1307, Branch Until Discontinu ed, Routine, Intra-op water for 2020- No PRN, Univers irrigation 06-02 Starting ity of irrigation 18:07: 20:57 Sun [place] solution 00 :02 06/02/20 at Medic al 1307, Branch Until 06/02/20 at 1557, Routine, Intra-op Hyaluronida Yes PRN, Univer s se, Human 06-02 Starting ity of Recomb. 18:06: Sun [place] (HYLENEX) 00 06/02/20 at [facility] dariusz injection 1306, Branch Until Discontinu ed, Routine, Intra-op Hyaluronida 2020- No PRN, Unive rs se, Human 06-02 Starting ity o f Recomb. 18:06: 20:57 Sun [place] (HYLENEX) 00 :02 06/02/20 at Medi dariusz injection 1306, Branch Until Sun06/02/20 at 1557, Routine, Intra-op lactated 2020- No 1000mL at 42 Unive rs ringers IV 06-02-14 mL/hr, ity of infusion 16:15: 16:12 1,000 mL, [place] as 1,000 mL 00 :00 IV Medical Infusion, Branch ONCE, 1 dose, 06/02/20 at 1115, Routine, DSU Pre-op lactated 2020- No 1000mL at 42 Unive rs ringers IV 06-02 04-14 mL/hr, ity of infusion 16:15: 16:12 1,000 mL, [place] as 1,000 mL 00 :00 IV Medical Infusion, Branch ONCE, 1 dose, 06/02/20 at 1115, Routine, DSU Pre-op mydriatic 2020- No .5mL 0.5 mL, Univ ers #5 06-02 Left Eye, ity of ophthalmic 16:00: 16:06 ONCE, 1 [place] solution 00 :00 dose, Wed Medica l 0.5 mL 06/02/20 at Branch syringe 1100, Routine, DSU Pre-op mydriatic 2020- No .5mL 0.5 mL, Univ ers #5 06-02 Left Eye, ity of ophthalmic 16:00: 16:06 ONCE, 1 [place] solution 00 :00 dose, Wed Medica l 0.5 mL 06/02/20 at Branch syringe 1100, Routine, DSU Pre-op tamsulosin Yes Take by Uni vers 0.4 mg 24 4-14 mouth ity of hr capsule 13:51: daily. [place] [address] Medical Branch finasteride Yes 5mg Take 5 mg U nivers 5 mg tablet 4-14 by mouth ity of 13:51: daily. [place] [address] Medical Branch atorvastati Yes 20mg Take 20 mg Univers n 20 mg 4-14 by mouth ity of tablet 13:51: at [place] 59 bedtime. Medical Branch LORazepam 1 Yes 1mg Take 1 mg U nivers mg tablet 4-14 by mouth 4 ity of 13:51: (four) [place] 59 times Medical daily as Branch needed for Anxiety or Agitation. Brimonidine Yes Place in U nivers -Timolol 4-14 each eye. ity of (COMBIGAN) 13:51: [place] 0.2-0.5 % Medical ophthalmic Branch drops tamsulosin Yes Take by Uni vers 0.4 mg 24 4-14 mouth ity of hr capsule 13:51: daily. [place] [address] Medical Branch finasteride 0 Yes 5mg Take 5 mg U nivers 5 mg tablet 4-14 by mouth ity of 13:51: daily. [place] [address] Medical Branch atorvastati 0 Yes 20mg Take 20 mg Univers n 20 mg 4-14 by mouth ity of tablet 13:51: at [place] [address] bedtime. Medical Branch LORazepam 1 0 Yes 1mg Take 1 mg U nivers mg tablet 4-14 by mouth 4 ity of 13:51: (four) [place] [address] times Medical daily as Branch needed for Anxiety or Agitation. Brimonidine [address] in U nivers -Timolol 4-14 each eye. ity of (FRANDY) 13:51: [place] 0.2-0.5 % 59 Medical ophthalmic Branch drops finasteride 2020-0 Yes 5mg Take 5 mg U nivers 5 mg tablet 4-13 by mouth ity of 15:44: daily. [place] [address] Medical Branch atorvastati 0 Yes 20mg Take 20 mg Univers n 20 mg 4-13 by mouth ity of tablet 15:44: at [place] [address] bedtime. Medical Branch LORazepam 1 0 Yes 1mg Take 1 mg U nivers mg tablet 4-13 by mouth 4 ity of 15:44: (four) [place] [address] times Medical daily as Branch needed for Anxiety or Agitation. Brimonidine 2020-[address] in U nivers -Timolol 4-13 each eye. ity of (FRANDY) 15:44: [place] 0.2-0.5 % 59 Medical ophthalmic Branch drops finasteride 2020-0 Yes 5mg Take 5 mg U nivers 5 mg tablet 4-13 by mouth ity of 15:44: daily. [place] [address] Medical Branch atorvastati 0 Yes 20mg Take 20 mg Univers n 20 mg 4-13 by mouth ity of tablet 15:44: at [place] [address] bedtime. Medical Branch LORazepam 1 0 Yes 1mg Take 1 mg U nivers mg tablet 4-13 by mouth 4 ity of 15:44: (four) [place] [address] times Medical daily as Branch needed for Anxiety or Agitation. Brimonidine 2020-[address] in U nivers -Timolol 4-13 each eye. ity of (COMBIGAN) 15:44: [place] 0.2-0.5 % 59 Medical ophthalmic Branch drops tamsulosin 2020-0 Yes Take by Uni vers 0.4 mg 24 4-13 mouth ity of hr capsule 15:44: daily. [place] [address] Medical Branch tamsulosin 1-0 Yes Take by Uni vers 0.4 mg 24 4-13 mouth ity of hr capsule 15:44: daily. [place] [address] Medical Branch amoxicillin 1-0 Yes 250mg Take 250 U nivers 250 mg 4-08 mg by ity of capsule 00:00: mouth 3 [place] (three) Medical times Branch daily. amoxicillin 2021-0 Yes 250mg Take 250 U nivers 250 mg 4-08 mg by ity of capsule 00:00: mouth 3 [place] (three) Medical times Branch daily. amoxicillin 2021-0 Yes 250mg Take 250 U nivers 250 mg 4-08 mg by ity of capsule 00:00: mouth [place] (three) Medical times Branch daily. amoxicillin 1-0 Yes 250mg Take 250 U nivers 250 mg 4-08 mg by ity of capsule 00:00: mouth [place] (three) Medical times Branch daily. amoxicillin 2021-0 Yes 250mg Take 250 U nivers 250 mg 3-29 mg by ity of capsule 00:00: mouth 3 [place] (three) Medical times Branch daily. amoxicillin 2021-0 Yes 250mg Take 250 U nivers 250 mg 3-29 mg by ity of capsule 00:00: mouth [place] (three) Medical times Branch daily. amoxicillin 2021-0 Yes 250mg Take 250 U nivers 250 mg 3-29 mg by ity of capsule 00:00: mouth 3 [place] (three) Medical times Branch daily. amoxicillin 2021-0 Yes 250mg Take 250 U nivers 250 mg 3-29 mg by ity of capsule 00:00: mouth 3 [place] (three) Medical times Branch daily. amoxicillin 2021-0 Yes 250mg Take 250 U nivers 250 mg 3-29 mg by ity of capsule 00:00: mouth 3 [place] (three) Medical times Branch daily. amoxicillin 2021-0 Yes 250mg Take 250 U nivers 250 mg 3-29 mg by ity of capsule 00:00: mouth 3 [place] (three) Medical times Branch daily. cephALEXin 2020-0 Yes TAKE TWO Uni vers 500 mg 3-25 (2) ity of capsule 00:00: CAPSULE(S) [place] 00 BY MOUTH Medical NOW, THEN Branch TAKE 1 CAPSULE THREE TIMES A DAY UNTIL GONE. cephALEXin 2020-0 Yes TAKE TWO Uni vers 500 mg 3-25 (2) ity of capsule 00:00: CAPSULE(S) [place] 00 BY MOUTH Medical NOW, THEN Branch TAKE 1 CAPSULE THREE TIMES A DAY UNTIL GONE. cephALEXin 2020-0 Yes TAKE TWO Uni vers 500 mg 3-25 (2) ity of capsule 00:00: CAPSULE(S) [place] 00 BY MOUTH Medical NOW, THEN Branch TAKE 1 CAPSULE THREE TIMES A DAY UNTIL GONE. cephALEXin 2020-0 Yes TAKE TWO Uni vers 500 mg 3-25 (2) ity of capsule 00:00: CAPSULE(S) [place] 00 BY MOUTH Medical NOW, THEN Branch TAKE 1 CAPSULE THREE TIMES A DAY UNTIL GONE. cephALEXin 2020-0 Yes TAKE TWO Uni vers 500 mg 3-25 (2) ity of capsule 00:00: CAPSULE(S) [place] 00 BY MOUTH Medical NOW, THEN Branch TAKE 1 CAPSULE THREE TIMES A DAY UNTIL GONE. cephALEXin 2020-0 Yes TAKE TWO Uni vers 500 mg 3-25 (2) ity of capsule 00:00: CAPSULE(S) [place] 00 BY MOUTH Medical NOW, THEN Branch TAKE 1 CAPSULE THREE TIMES A DAY UNTIL GONE. tamsulosin 2020-0 Yes .4mg Take 0.4 Uni vers 0.4 mg 24 3-18 mg by ity of hr capsule 00:00: mouth daily. Medical Branch tamsulosin 2020-0 Yes .4mg Take 0.4 Uni vers 0.4 mg 24 3-18 mg by ity of hr capsule 00:00: mouth 00 daily. Medical Branch tamsulosin 2021-0 Yes .4mg Take 0.4 Uni vers 0.4 mg 24 3-18 mg by ity of hr capsule 00:00: mouth 00 daily. Medical Branch tamsulosin 202-0 Yes .4mg Take 0.4 Uni vers 0.4 mg 24 3-18 mg by ity of hr capsule 00:00: mouth daily. Medical Branch tamsulosin 2021-0 Yes .4mg Take 0.4 Uni vers 0.4 mg 24 3-18 mg by ity of hr capsule 00:00: mouth daily. Medical Branch tamsulosin 2020-0 Yes .4mg Take 0.4 Uni vers 0.4 mg 24 3-18 mg by ity of hr capsule 00:00: mouth daily. Medical Branch finasteride 2020-0 Yes 5mg Take 5 mg U nivers 5 mg tablet 3-11 by mouth ity of 00:00: daily. Medical Branch finasteride 2020-0 Yes 5mg Take 5 mg U nivers 5 mg tablet 3-11 by mouth ity of 00:00: daily. [facility] Branch finasteride 2020-0 Yes 5mg Take 5 mg U nivers 5 mg tablet 3-11 by mouth ity of 00:00: daily. [facility] Branch finasteride 2020-0 Yes 5mg Take 5 mg U nivers 5 mg tablet 3-11 by mouth ity of 00:00: daily. [facility] Branch finasteride 2020-0 Yes 5mg Take 5 mg U nivers 5 mg tablet 3-11 by mouth ity of 00:00: daily. [facility] Branch finasteride 2020-0 Yes 5mg Take 5 mg U nivers 5 mg tablet 3-11 by mouth ity of 00:00: daily. [place] [facility] LORazepam 1 2020-0 Yes 1mg Take 1 mg U nivers mg tablet 3-09 by mouth ity of 00:00: daily. [facility] LORazepam 1 2020-0 Yes 1mg Take 1 mg U nivers mg tablet 3-09 by mouth ity of 00:00: daily. [facility] LORazepam 1 2020-0 Yes 1mg Take 1 mg U nivers mg tablet 3-09 by mouth ity of 00:00: daily. [facility] LORazepam 1 2020-0 Yes 1mg Take 1 mg U nivers mg tablet 3-09 by mouth ity of 00:00: daily. [place] [facility] LORazepam 1 2020-0 Yes 1mg Take 1 mg U nivers mg tablet 3-09 by mouth ity of 00:00: daily. [facility] LORazepam 1 2020-0 Yes 1mg Take 1 mg U nivers mg tablet 3-09 by mouth ity of 00:00: daily. [place] [address] Medical Branch acyclovir 2021-0 Yes TAKE ONE Univ ers 400 mg 3-08 (1) ity of tablet 00:00: TABLET(S) [place] 00 BY MOUTH Medical THREE Branch TIMES A DAY FOR 1 WEEK BEFORE SURGERY AND FOR 2 WEEKS AFTER SURGERY. acyclovir 2021-0 Yes TAKE ONE Univ ers 400 mg 3-08 (1) ity of tablet 00:00: TABLET(S) [place] 00 BY MOUTH Medical THREE Branch TIMES A DAY FOR 1 WEEK BEFORE SURGERY AND FOR 2 WEEKS AFTER SURGERY. acyclovir 2021-0 Yes TAKE ONE Univ ers 400 mg 3-08 (1) ity of tablet 00:00: TABLET(S) [place] 00 BY MOUTH Medical THREE Branch TIMES A DAY FOR 1 WEEK BEFORE SURGERY AND FOR 2 WEEKS AFTER SURGERY. acyclovir 2021-0 Yes TAKE ONE Univ ers 400 mg 3-08 (1) ity of tablet 00:00: TABLET(S) [place] 00 BY MOUTH Medical THREE Branch TIMES A DAY FOR 1 WEEK BEFORE SURGERY AND FOR 2 WEEKS AFTER SURGERY. acyclovir 2021-0 Yes TAKE ONE Univ ers 400 mg 3-08 (1) ity of tablet 00:00: TABLET(S) [place] 00 BY MOUTH Medical THREE Branch TIMES A DAY FOR 1 WEEK BEFORE SURGERY AND FOR 2 WEEKS AFTER SURGERY. acyclovir 2021-0 Yes TAKE ONE Univ ers 400 mg 3-08 (1) ity of tablet 00:00: TABLET(S) [place] 00 BY MOUTH Medical THREE Branch TIMES A DAY FOR 1 WEEK BEFORE SURGERY AND FOR 2 WEEKS AFTER SURGERY. acyclovir 2021-0 Yes TAKE ONE Univ ers 400 mg 3-08 (1) ity of tablet 00:00: TABLET(S) [place] 00 BY MOUTH Medical THREE Branch TIMES A DAY FOR 1 WEEK BEFORE SURGERY AND FOR 2 WEEKS AFTER SURGERY. acyclovir 2021-0 Yes TAKE ONE Univ ers 400 mg 3-08 (1) ity of tablet 00:00: TABLET(S) [place] 00 BY MOUTH Medical THREE Branch TIMES A DAY FOR 1 WEEK BEFORE SURGERY AND FOR 2 WEEKS AFTER SURGERY. acyclovir 2021-0 Yes TAKE ONE Univ ers 400 mg 3-08 (1) ity of tablet 00:00: TABLET(S) [place] 00 BY MOUTH Medical THREE Branch TIMES A DAY FOR 1 WEEK BEFORE SURGERY AND FOR 2 WEEKS AFTER SURGERY. acyclovir Yes TAKE ONE Univ ers 400 mg 3-08 (1) ity of tablet 00:00: TABLET(S) [place] BY [facility] Medical THREE Branch TIMES A DAY FOR 1 WEEK BEFORE SURGERY AND FOR 2 WEEKS AFTER SURGERY. Immunizations Ordered Filled Immunization Date Status Comments [facility] Immunization Name Name SARS-COV-2 COVID-19 2020-05-27 Completed Unive rsity of PFIZER VACCINE 00:00:00 [place] [facility] SARS-COV-2 COVID-19 2020-05-27 Completed Unive rsity of PFIZER VACCINE 00:00:00 [place] [facility] SARS-COV-2 COVID-19 2020-05-27 Completed Unive rsity of PFIZER VACCINE 00:00:00 [place] [facility] SARS-COV-2 COVID-19 2020-05-27 Completed Unive rsity of PFIZER VACCINE 00:00:00 [place] [facility] SARS-COV-2 COVID-19 2020-05-27 Completed Unive rsity of PFIZER VACCINE 00:00:00 [place] [facility] SARS-COV-2 COVID-19 2020-05-27 Completed Unive rsity of PFIZER VACCINE 00:00:00 [place] [facility] SARS-COV-2 COVID-19 2020-05-06 Completed Unive rsity of PFIZER VACCINE 00:00:00 [place] [facility] SARS-COV-2 COVID-19 2020-05-06 Completed Unive rsity of PFIZER VACCINE 00:00:00 [place] [facility] SARS-COV-2 COVID-19 2020-05-06 Completed Unive rsity of PFIZER VACCINE 00:00:00 [place] [facility] SARS-COV-2 COVID-19 2020-05-06 Completed Unive rsity of PFIZER VACCINE 00:00:00 [place] [facility] SARS-COV-2 COVID-19 2020-05-06 Completed Unive rsity of PFIZER VACCINE 00:00:00 [place] [facility] SARS-COV-2 COVID-19 2020-05-06 Completed Unive rsity of PFIZER VACCINE 00:00:00 [place] [facility] SARS-COV-2 COVID-19 2020-05-06 Completed Unive rsity of PFIZER VACCINE 00:00:00 [place] [facility] Vital Signs Vital Name Observation Time Observation Value Comments Source Systolic blood 2020-06-16 18:57:00 166 mm[Hg] Univer sity of pressure [place] [facility] Diastolic blood 2020-06-16 18:57:00 69 mm[Hg] Unive rsity of pressure [place] [facility] Heart rate 2020-06-16 18:57:00 56 /min [facility] [place] [facility] Respiratory rate 2020-06-16 18:57:00 15 /min Univ ersity of [place] [facility] Oxygen saturation in 2020-06-16 18:57:00 98 /min University of Arterial blood by [facility] Pulse oximetry Branch Body temperature 2020-06-16 18:45:00 36.61 Julia Univ ersity of [place] [facility] Body height 2020-06-09 17:58:00 180.4 cm [facility] [place] [facility] Body weight 2020-06-09 17:58:00 102.5 kg [facility] [place] [facility] BMI 2020-06-09 17:58:00 31.50 kg/m2 [facility] [place] [facility] Systolic blood 2020-06-16 18:57:00 166 mm[Hg] Univer sity of pressure [place] [facility] Diastolic blood 2020-06-16 18:57:00 69 mm[Hg] Unive rsity of pressure [place] [facility] Heart rate 2020-06-16 18:57:00 56 /min [facility] [place] [facility] Respiratory rate 2020-06-16 18:57:00 15 /min Univ ersity of [place] [facility] Oxygen saturation in 2020-06-16 18:57:00 98 /min University of Arterial blood by [facility] Pulse oximetry Branch Body temperature 2020-06-16 18:45:00 36.61 Julia Univ ersity of [place] [facility] Body height 2020-06-09 17:58:00 180.4 cm [facility] [place] [facility] Body weight 2020-06-09 17:58:00 102.5 kg [facility] [place] [facility] BMI 2020-06-09 17:58:00 31.50 kg/m2 [facility] [place] [facility] Systolic blood 2020-06-16 18:57:00 166 mm[Hg] Univer sity of pressure [place] [facility] Diastolic blood 2020-06-16 18:57:00 69 mm[Hg] Unive rsity of pressure [place] [facility] Heart rate 2020-06-16 18:57:00 56 /min [facility] [place] [facility] Respiratory rate 2020-06-16 18:57:00 15 /min Univ ersity of [place] [facility] Oxygen saturation in 2020-06-16 18:57:00 98 /min University of Arterial blood by [facility] Pulse oximetry Branch Body temperature 2020-06-16 18:45:00 36.61 Julia Univ ersity of [place] [facility] Body height 2020-06-09 17:58:00 180.4 cm [facility] [place] [facility] Body weight 2020-06-09 17:58:00 102.5 kg [facility] [place] [facility] BMI 2020-06-09 17:58:00 31.50 kg/m2 [facility] [place] [facility] Systolic blood 2020-06-16 18:57:00 166 mm[Hg] Univer sity of pressure [place] [facility] Diastolic blood 2020-06-16 18:57:00 69 mm[Hg] Unive rsity of pressure [place] [facility] Heart rate 2020-06-16 18:57:00 56 /min [facility] [place] [facility] Respiratory rate 2020-06-16 18:57:00 15 /min Univ ersity of [place] [facility] Oxygen saturation in 2020-06-16 18:57:00 98 /min University of Arterial blood by [facility] Pulse oximetry Branch Body temperature 2020-06-16 18:45:00 36.61 [facility] [place] [facility] Body height 2020-06-09 17:58:00 180.4 cm [facility] Body weight 2020-06-09 17:58:00 102.5 kg [facility] BMI 2020-06-09 17:58:00 31.50 kg/m2 [facility] Systolic blood 2020-06-02 18:45:00 146 mm[Hg] [facility] [place] [facility] Diastolic blood 2020-06-02 18:45:00 68 mm[Hg] [facility] [place] [facility] Heart rate 2020-06-02 18:45:00 53 /min [facility] [place] [facility] Respiratory rate 2020-06-02 18:45:00 15 /min [facility] [place] [facility] Oxygen saturation in 2020-06-02 18:45:00 99 /min [facility] Arterial blood by [place] [employer] dariusz Pulse oximetry Branch Body temperature 2020-06-02 18:28:00 36.22 Julia [facility] [place] [facility] Body height 2020-06-01 15:30:00 185.4 cm [facility] [place] [facility] Body weight 2020-06-01 15:30:00 102.059 kg [facility] [place] [facility] BMI 2020-06-01 15:30:00 29.69 kg/m2 [facility] [place] [facility] Systolic blood 2020-06-02 18:45:00 146 mm[Hg] [facility] [place] [facility] Diastolic blood 2020-06-02 18:45:00 68 mm[Hg] [facility] [place] [facility] Heart rate 2020-06-02 18:45:00 53 /min [facility] [place] [facility] Respiratory rate 2020-06-02 18:45:00 15 /min [facility] [place] [facility] Oxygen saturation in 2020-06-02 18:45:00 99 /min [facility] Arterial blood by [place] [employer] dariusz Pulse oximetry Branch Body temperature 2020-06-02 18:28:00 36.22 Julia [facility] [place] [facility] Body height 2020-06-01 15:30:00 185.4 cm [facility] [place] [facility] Body weight 2020-06-01 15:30:00 102.059 kg [facility] [place] [facility] BMI 2020-06-01 15:30:00 29.69 kg/m2 [facility] [place] [facility] Systolic blood 2020-06-02 18:45:00 146 mm[Hg] [facility] [place] [facility] Diastolic blood 2020-06-02 18:45:00 68 mm[Hg] [facility] [place] [facility] Heart rate 2020-06-02 18:45:00 53 /min [facility] [place] [facility] Respiratory rate 2020-06-02 18:45:00 15 /min [facility] [place] [facility] Oxygen saturation in 2020-06-02 18:45:00 99 /min [facility] Arterial blood by [place] [employer] dariusz Pulse oximetry Branch Body temperature 2020-06-02 18:28:00 36.22 Julia [facility] [place] [facility] Body height 2020-06-01 15:30:00 185.4 cm Universi ty [facility] Body weight 2020-06-01 15:30:00 102.059 kg Universi [facility] BMI 2020-06-01 15:30:00 29.69 kg/m2 Universi [facility] Systolic blood 2020-06-02 18:45:00 146 mm[Hg] Univer sity of pressure [facility] Diastolic blood 2020-06-02 18:45:00 68 mm[Hg] [facility]ive [facility] Heart rate 2020-06-02 18:45:00 53 /min [facility] Respiratory rate 2020-06-02 18:45:00 15 /min [facility] Oxygen saturation in 2020-06-02 18:45:00 99 /min [facility] Arterial blood by [facility] Pulse oximetry Branch Body temperature 2020-06-02 18:28:00 36.22 [facility] height 2020-06-01 15:30:00 185.4 cm Universi ty [facility] Body weight 2020-06-01 15:30:00 102.059 kg [facility] BMI 2020-06-01 15:30:00 29.69 kg/m2 [facility] Procedures Procedure Date / Time Performing Source Performed Clinician PHACOEMULSIFICATION OF 2020-06-16 Tone Plascenica [facility] CATARACT WITH INTRAOCULAR 18:03:00 [facility] LENS IMPLANT COVID-19 (ID NOW RAPID 2020-06-15 Tone Plascencia [facility] TESTING) 16:54:00 Medical Branch ASSIGNMENT OF BENEFITS 2020-06-15 Doctor Unassigned, [facility] 16:41:30 [facility] Branch PHACOEMULSIFICATION OF 2020-06-02 Tone Plascencia [facility] CATARACT WITH INTRAOCULAR 17:50:00 Medica l [place] LENS IMPLANT ASSIGNMENT OF BENEFITS 2020-06-01 Doctor Unassigned, [facility] 16:58:39 [place] [facility] COMP. METABOLIC PANEL (17730) 2020-05-10 Tone Plascencia [facility] 21:03:00 [facility] CBC WITH DIFF 2020-05-10 Tone Plascencia [facility] 21:03:00 [facility] Encounters Start End Encounter Admission Attending Care Care Encounter Source Date/Time Date/Time Type Type Clinicians Facility Department ID 2020-12-19 Outpatient [facility] [id number] Univers 13:48:57 TONE ity [facility] 2021-02-24 2021-02-24 Letter RASHIDA Gonzalez 1.2.840.114 [id number] Univers 00:00:00 00:00:00 (Out) Francine PETERSON 350.1.13.[address] [facility] 4.2.7.2.686 [place] [phone] [address] 2021-02-22 2021-02-22 Laboratory Only, Ang Db Test [facility] 1.2.8 40.114 [id number] Univers 11:30:00 11:45:00 Only Unknown, Attending HEALTH 350.1.13.10 ity of Emily Ferris 4.2.7.2.686 [place] DERRICK?BLEA [id number] [address] MEDICAL OFFICE BUILDING 2021-02-22 2021-02-22 Outpatient R [facility] [id number] Univers 11:30:00 11:30:00 [id number] ity [facility] 2021-02-22 2021-02-22 Outpatient R GLEN [facility] [id number] Univers 11:30:00 11:30:00 EMILY ity [facility] 2020-06-16 2020-06-16 [facility] [id number] Univers 11:25:00 14:16:00 Encounter Tone Sahu 350.1.13.10 it[place] [id number] Med ica[address] 2020-06-16 2020-06-16 [facility] [id number] 11:25:00 14:16:00 Encounter Tone Sahu 350.1.13.10 [place] 4.2.7.2.686 Surgical [id number] [place] [address] 2020-06-16 2020-06-16 Surgery Temo [facility] 1.2.840.114 [id number] Univers 13:23:00 14:03:00 Tone Ruano Luis Alberto 350.1.13.10 ity [place] [id number] [facility] 020 [place] 2020-06-16 2020-06-16 Surgery [facility] 1.2.840.114 [id number] 13:23:00 14:03:00 Portal 350.1.13.10 [place] 4.2.7.2.686 Surgical [id number] [place] 020 2020-06-15 2020-06-15 Laboratory Only, [facility] Test [facility] 1.2.840. 114 [id number] Univers 11:40:06 11:55:06 Only Tone Plascencia Luis Alberto 350.1.13.1 0 ity of [place]2.[place] [id number] [facility] 353 [place] 2020-06-15 2020-06-15 Laboratory Only, [facility] 1.2.840.114 [id number] 11:40:06 11:55:06 Only Test Luis Alberto 350.1.13.10 [place] 4.2.7.2.686 [place] [id number] 353 2020-06-15 2020-06-15 Outpatient R [facility] [id number] -[id number] Univers 11:45:00 11:45:00 [id number] ity of [facility] 2020-06-15 2020-06-15 Outpatient R TEMO [facility] [id number] Univers 11:45:00 11:45:00 TONE itbrandi of [facility] 2020-06-15 2020-06-15 Orders Doctor FIELD 1.2.840.114 [id number] Univers 00:00:00 00:00:00 Only Unassigned, KRISTEN 350.1.13.[address] [facility] 4.2.7.2.686 [place] as [id number] [facility] 009 Branch 2020-06-15 2020-06-15 Orders Doctor FIELD 1.2.840.114 [id number] 00:00:00 00:00:00 Only Unassigned, KRISTEN 350.1.13.10 [facility] 4.2.7.2.686 [id number] 009 2020-06-02 2020-06-02 Surgery [facility] 1.2.840.114 [id number] Univers 13:10:00 13:52:00 Tone Ruano Portal 350.1.13.10 ity [place] [id number] [facility] 020 [place] 2020-06-02 2020-06-02 Surgery [facility] 1.2.840.114 [id number] 13:10:00 13:52:00 Portal 350.1.13.10 [place] 4.2.7.2.686 Surgical [id number] [place] [address] 2020-06-02 2020-06-02 [facility] [id number] [facility] 10:55:00 13:47:00 Encounter Tone Ruano Luis Alberto 350.1.13.10 ity [place] [id number] [facility] [address] [place] [address] 2020-06-02 2020-06-02 [facility] 1.2.741.257 [id number] 10:55:00 13:47:00 Encounter Tone Sahu 350.1.13.10 [place] 4.2.7.2.686 Surgical [id number] [place] [address] 2020-06-02 2020-06-02 Outpatient R [facility] OPH [id number] Univers 10:55:00 10:55:00 TONE itbrandi [facility] 2020-06-01 2020-06-01 Laboratory Only, [facility] Test [facility] 1.2.840. 114 [id number] Univers 11:58:15 12:13:15 Only Tone Plascencia Luis Alberto 350.1.13.1 0 ity [place]2.[place] [id number] [address] 2020-06-01 2020-06-01 Laboratory Only, [facility] 1.2.840.114 [id number] 11:58:15 12:13:15 Only Test Luis Alberto 350.1.13.10 [place] 4.2.7.2.686 [place] [id number] 353 2020-06-01 2020-06-01 Outpatient R TEMO [facility] [id number] Univers 11:15:00 11:15:00 TONE brandi [facility] 2020-06-01 2020-06-01 Orders Doctor FIELD 1.2.840.114 [id number] Univers 00:00:00 00:00:00 Only Unassigned, KRISTEN 350.1.13.[address] [facility] 4.2.7.2.686 [place] [id number] [address] 2020-06-01 2020-06-01 Orders Doctor RASHIDA 1.2.840.114 [id number] 00:00:00 00:00:00 Only Unassigned, KRISTEN 350.1.13.[address] [facility] 4.2.7.2.686 [id number] 009 2020-05-27 2020-05-27 Outpatient R ROBERT [facility] [id number] [facility] 12:50:00 12:50:00 MARYA [facility] 2020-05-18 2020-05-18 Outpatient R TEMO [facility] [id number] [facility] 11:15:00 11:15:00 TONE [facility] 2020-05-10 2020-05-10 Visitor Services Information Assistant Kell [facility] 1.2.840.114 [id number] 15:48:39 16:03:39 Visit Lab Main Luis Alberto 350.1.13.10 [place] 4.2.7.2.686 Professio [id number] [address] 2020-05-10 2020-05-10 Visitor Services Information Assistant Myrtle Castorena Lab Main [facility] 1.2.8 40.114 [id number] Univers 15:48:39 16:03:39 Visit Temo Tone Alden [place]ahu 350.1.13.1 0 ity [facility] [place] [id number] Mi dical [address] 2020-05-10 2020-05-10 Outpatient R [facility] [id number] Univers 16:00:00 16:00:00 [id number] [facility] 2020-05-10 2020-05-10 Outpatient R TEMO, [facility] [id number] Univers 16:00:00 16:00:00 TONE [facility] 2020-05-06 2020-05-06 Outpatient R ROBERT, [facility] [id number] Univers 13:00:00 12:48:04 MARYA [facility] Results Test Description Test Time Test Comments Results Result Comments Source COVID-19 (ID NOW RAPID TESTING) 2020-06-15 18:03:09 Test Item Value Reference Range Interpretation Comme nts SARS-CoV-2 Rapid ID NOW (test code Not Detected Not Detected = 16758-3) STALIN (test code = STALIN) ID NOW COVID-19 Assay is an isothermal nucleic acid amplification test intended for the qualitative detection of nucleic acid from SARS-CoV-2 viral RNA in nasopharyngeal (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 It is used under Emergency Use Authorization (EUA) by FDA. The limit of detection (LOD) of the assay is 125 Genome Equivalents/mL. A positive result is indicative of the presence of SARS-CoV-2 RNA. ?Clinical correlation with patient history and other diagnostic information is necessary to determine patient infection status. A negative (Not Detected) result does not preclude SARS-CoV-2 infection. In patients with clinical symptoms and other tests that are consistent with SARS-CoV-2 infection, negative results should be treated as presumptive negative and a new specimen should be tested with alternative PCR molecular test. Invalid: Please collect a new specimen for repeat patient testing if clinically indicated. Lab Interpretation (test code = Normal 64370-9) [facility]43746[facility]2020-05-10 21:51:50 Test Item Value Reference Range Interpretation Comments NA (test code = 138 mmol/L 135-145 0526039403) K (test code = 4.3 mmol/L 3.5-5.0 4354830937) CL (test code = 103 mmol/L 98-108 6015286905) CO2 TOTAL (test code = 28 mmol/L 23-31 5084275158) AGAP (test code = 2-16 0360646106) BUN (test code = 22 mg/dL 7-23 9898500840) GLUCOSE (test code = 97 mg/dL 70-110 3970680919) CREATININE (test code 1.10 mg/dL 0.60-1.25 = 2608527381) TOTAL BILI (test code 0.9 mg/dL 0.1-1.1 = 9613837326) CALCIUM (test code = 8.7 mg/dL 8.6-10.6 3983609268) T PROTEIN (test code = 6.8 g/dL 6.3-8.2 0105717341) ALBUMIN (test code = 4.4 g/dL 3.5-5.0 8021162141) ALK PHOS (test code = 117 U/L 34-122 5608975491) ALTv (test code = 31 U/L 5-50 2-6) AST(SGOT) (test code = 36 U/L 13-40 1342550999) eGFR Calculation mL/min/1.73m2 (Non-) (test code = 5942142617) eGFR Calculation mL/min/1.73m2 () (test code = 3880884936) STALIN (test code = STALIN) Association of Glomerular Filtration Rate (GFR) and Staging of Kidney Disease* + -+ + ---+| GFR (mL/min/1.73 m2) ?| With Kidney Damage ?| ?Without Kidney Damage+ -------+ ------+ ---------+| ?>90 ?| ?Stage one ?| ? Normal ?+ --+ -+ ----+| ?60-89 ?| ?Stage two ?| ? Decreased GFR ? + -+ + ---+| ?30-59 ?| ?Stage three ?| ? Stage three ? + -+ + ---+| ?15-29 ?| ?Stage four ? | ? Stage four ?+ --+ -+ ----+| ?<15 (or dialysis) ? ?| ?Stage five ? | ? Stage five ?+ --+ -+ ----+ *Each stage assumes the associated GFR level has been in effect for at least three months. ?Stages 1 to 5, with or without kidney disease, indicate chronic kidney disease. Notes: Determination of stages one and two (with eGFR >59mL/min/1.73 m2) requires estimation of kidney damage for at least three months as defined by structural or functional abnormalities of the kidney, manifested by either:Pathological abnormalities or Markers of kidney damage (including abnormalities in the composition of the blood or urine or abnormalities in imaging tests). [facility] WITH [id number] 21:28:44 Test Item Value Reference Range Interpretation Comments WBC (test code = See_Comment [Automated 6690-2) message] The sy stem which generated this result transmitted reference range : 4.20 - 10.70 10*3/?L. The reference range was not used to interpret this result as normal/abnormal . RBC (test code = See_Comment [Automated 789-8) message] The sy stem which generated this result transmitted reference range : 4.26 - 5.52 10*6/?L. The reference range was not used to interpret this result as normal/abnormal . HGB (test code = 14.3 g/dL 12.2-16.4 718-7) HCT (test code = 42.1 % 38.4-49.3 4544-3) MCV (test code = 95.9 fL 81.7-95.6 H 787-2) MCH (test code = 32.6 pg 26.1-32.7 785-6) MCHC (test code = 34.0 g/dL 31.2-35.0 786-4) RDW-SD (test code = 45.1 fL 38.5-51.6 18236-1) RDW-CV (test code = 12.9 % 12.1-15.4 788-0) PLT (test code = See_Comment L [Automated 777-3) message] The sy stem which generated this result transmitted reference range : 150 - 328 10*3/ ?L. The reference r alta was not used to interpret this result as normal/abnormal . MPV (test code = 9.3 fL 9.8-13.0 L 06545-8) IPF % (test code = 1.1 % 1.2-10.7 L Platelet count 9966504681) measured by fluorescence method. NRBC/100 WBC (test See_Comment [Automat ed code = 8859199050) message] The system which generated this result transmitted reference range : 0.0 - 10.0 /100 WBCs. The refer ence range was not u sed to interpret th is result as normal/abnormal . NRBC x10^3 (test code <0.01 See_Comment [Auto mated = 7420387694) message] The s ystem which generated this result transmitted reference range : 10*3/?L. The reference range was not used to interpret this result as normal/abnormal . GRAN MAT (NEUT) % 66.9 % (test code = 770-8) IMM GRAN % (test code 0.20 % = 5442644529) LYMPH % (test code = 20.9 % 736-9) MONO % (test code = 9.8 % 5905-5) EOS % (test code = 1.6 % 713-8) BASO % (test code = 0.6 % 706-2) GRAN MAT x10^3(ANC) 3.36 10*3/uL 1.99-6.95 (test code = 8932143106) IMM GRAN x10^3 (test <0.03 0.00-0.06 code = 5835280297) LYMPH x10^3 (test code 1.05 10*3/uL 1.09-3.23 L = 731-0) MONO x10^3 (test code 0.49 10*3/uL 0.36-1.02 = 742-7) EOS x10^3 (test code = 0.08 10*3/uL 0.06-0.53 711-2) BASO x10^3 (test code 0.03 10*3/uL 0.01-0.09 = 704-7) Lab Interpretation Abnormal (test code = 82798-3) [facility] [id number] 07:05:00 Test Item Value Reference Range Interpretation Comments SODIUM (test code = 139 mmol/L 136-145 N NA) POTASSIUM (test code = 4.9 mmol/L 3.5-5.1 N K) CHLORIDE (test code = 104.0 mmol/L 98-107 N CL) CARBON DIOXIDE (test 28.1 mmol/L 21-32 N code = CO2) GLUCOSE (test code = 123 mg/dL 70-110 H GLU) BLOOD UREA NITROGEN 20 mg/dL 7-18 H (test code = BUN) GLOMERULAR FILTRATION 66.3 >60 Unit o f measure: RATE (test code = GFR) mL/mi n/1.73 f6Vmmggjhgk Range:Healthy Adults >90 mL/min/1.73 m2 For Chronic Kidney Disease: St age II Mild Decrease in GFR 60-90 St age III Moderate Decrease in GFR 30-59 Stage IV Severe Decre ase in GFR 15- 29 Stage V Kidney Failure <15 CREATININE (test code 1.07 mg/dL 0.55-1.30 N = CREAT) CALCIUM (test code = 8.0 mg/dL 8.2-10.1 L CA) HGB [id number] 05:52:00 Test Item Value Reference Range Interpretation Comments HEMOGLOBIN (test code = HGB) 11.9 g/dL 12-16 L HEMATOCRIT (test code = HCT) 34.2 % 37-47 L COMPREHENSIVE METABOLIC [id number] 15:28:00 Test Item Value Reference Range Interpretation [...] RATE (test code = GFR) mL/mi n/1.73 o1Huabttaqk Range:Healthy Adults >90 mL/min/1.73 m2 For Chronic [...] H TOTAL (test code = ALKP) PROTHROMBIN [id number] 14:57:00 Test Item Value Reference Range Interpretation [...] v tompkins IS PATIENT ON ANTICOAGULANTS ? KYas Lab been notified if Patient is on Heparin Drip? NOIf Yes, orderCBC, OCCULT BLOOD, PT every other day NTHROMBOPLASTIN TIME [id number] 14:57:00 Test Item Value Reference Range Interpretation [...] 0-0 N code = NRBC) - MRI [facility] W/O CONT [id number] 13:47:00 Patient Name: XIMENA SUMMERS Unit No: [id number] EXAMS: CPT CODE: [id number] MRI [facility] W/[place] [address] TECHNIQUE: Multiplanar, multisequence MRI of the left [...] 3. Other chronic findings as described. at 7369 Reported and signed by: Luis M Emerson M.D. CC: Jaquelin Mobley MD; Raul Paz MD Technologist: LISSET DOMINGUEZ. RT(R) Transcribed D/ (2868) t.HIGINIO.RADHA [facility] NAME: XIMENA SUMMERS [address] [facility] PHYS: GOMMU.Maame - Jaquelin Mobley Dariusz : 1935 AGE: 83 SEX: Dariusz [place], [place] [address] LOC: Y.MRI PHONE #: [phone] EXAM DATE: 10/09/2018STATUS: DEP CLI FAX #: [phone] RAD #: D/C DT PAGE1 Signed Report Patient Name: XIMENA SUMMERS Unit No: [id number] EXAMS: CPT CODE: [id number] MRI LW JNT W/[place] [address] <Continued> Orig Print D/T: S: 10/10/2018 (6033) [facility] NAME: XIMENA SUMMERS [address] [facility] PHYS: GOMMU.Maame - GueromikeJaquelin branch Dariusz : AGE: 83 SEX: Dariusz [place], [place] [address] LOC: Y.MRI PHONE #: [phone] EXAM DATE: 10/09/2018 STATUS: DEP CLI FAX #: [phone] RAD #: D/C DT PAGE 2 Signed Report- MRI LW JNT W/O CONT [id number] 15:55:00 Patient Name: XIMENA SUMMERS Unit No: [id number] EXAMS: CPT CODE: [id number] MRI LW JNT W/[place] [address] MRI OF THE LEFT KNEE DIAGNOSIS: 1. [...] MD Technologist: ANNA VICENTE MRI Transcribed D/ (3743) Eddie [facility] NAME: XIMENA SUMMERS [address] [facility] PHYS: GOMMU.01 - Jaquelin Mobley : 1935 AGE: 83 SEX: M [place], [place] [address] LOC: Y.MRI PHONE #: [phone] EXAM DATE: 08/08/2018 STATUS: REG CLI FAX #:[phone] RAD #: D/C DT PAGE 1 Signed Report Patient Name: XIMENA SUMMERS Unit No: [id number] EXAMS: CPT CODE: [id number] [place] LW JNT [place] [address] <Continued> Orig Print D/T: S: 08/08/2018 (1558) [facility] [place] [facility]: XIMENA SUMMERS [address] [facility] PHYS: GOMMU.Maame - Jaquelin Mobley : 1935 AGE: 83 SEX:Dariusz [place], [place] [address] LOC: Y.MRI PHONE #: [phone] EXAM DATE: 08/08/2018 STATUS: REG CLI FAX #: [phone] RAD #: D/C DT PAGE 2 Signed Report"
--- NOTE | 2021-05-26 10:48 | RAD REPORT ---
EXAM DESCRIPTION: RAD - Tib Fib Right - 05/26/2021 10:23 am CLINICAL HISTORY: rule out fb COMPARISON: No comparisons FINDINGS: Single view submitted of portions of the tibia and fibula. No fracture identified. No radi opaque foreign body. No significant soft tissue gas is identified . IMPRESSION: No acute osseous abnormality involving the visualized portions of the tibia or fibula. N o radiopaque foreign body.
--- NOTE | 2021-05-26 13:50 | EDPHYS ---
Physician Documentation [facility] Name: Devaughn Moralez Age: 85 yrs Sex: Male : 1935 Arrival Date: 05/26/2021 Time: 09:54 Bed 4 Private MD: Raul Paz ED Physician Jr Randle HPI: 05/26 10:01 This 85 yrs old Male presents to ER via Wheelchair with complaints of Laceration To Leg.jmm 10:01 The patient has a laceration related to:. Onset: The symptoms/episode began/occurred jmm acutely, just prior to arrival. This is an 85-year-old male with history of hyperlipidemia, enlarged prostate the presents emerged part with complaints of multiple lacerations to the right lower leg. Patient states this occurred when he was mowing the lawn up an incline, the lawnmower came down on his leg. Patient is not up-to-date on tetanus immunization. Denies other known injury.. Historical: - Allergies: 10:01 No Known Allergies; ss - Home Meds: 10:01 atorvastatin Oral [Active]; ss - PMHx: 10:01 High Cholesterol; "prostate issue"; ss - Immunization history:: Client reports receiving the 2nd dose of the Covid vaccine, Last tetanus immunization: unknown. - Social history:: Smoking status: Patient denies any tobacco usage or history of. ROS: 10:01 Constitutional: Negative for fever, chills, and weight loss, Cardiovascular: Negative jmm for chest pain, palpitations, and edema, Respiratory: Negative for shortness of breath, cough, wheezing, and pleuritic chest pain. 10:01 MS/extremity: Positive for injury or acute deformity, laceration. 10:01 All other systems are negative. Exam: 10:01 Constitutional: This is a well developed, well nourished patient who is awake, alert, jmm and in no acute distress. Head/Face: atraumatic. Eyes: EOMI, no conjunctival erythema appreciated ENT: Moist Mucus Membranes Neck: Trachea midline, Supple Chest/axilla: Normal chest wall appearance and motion. Cardiovascular: Regular rate and rhythm. No edema appreciated Respiratory: Normal respirations, no respiratory distress appreciated Abdomen/GI: Non distended, soft Back: Normal ROM 10:01 Skin: 2 large lacerations noted to the right calf approximately 6 to 8 cm in length each. 10:01 Neuro: Orientation: is normal, Mentation: is normal, Memory: is normal. 10:01 Psych: Behavior/mood is pleasant, cooperative. Vital Signs: 10:00 BP 177 / 77; Pulse 77; Resp 17; Temp 98.3(TE); Pulse Ox 98% on R/A; Weight 104.33 kg; ss Pain 2/10; 11:02 BP 162 / 82; Pulse 65; Pulse Ox 98% on R/A; ap3 11:44 BP 174 / 82; Pulse 62; Pulse Ox 100% on R/A; ap3 12:32 BP 165 / 88; Pulse 62; Resp 15; Pulse Ox 100% ; jl7 MDM: 10:01 Patient medically screened. [facility] 13:49 Data reviewed: vital signs, nurses notes. Counseling: I had a detailed discussion with [facility] the patient and/or guardian regarding: the historical points, exam findings, and any diagnostic results supporting the discharge/admit diagnosis, radiology results, the need for further work-up and treatment in the hospital. 05/26 11:57 Order name: SARS-COV-2 RT PCR; Complete Time: 12:37 [facility] 05/26 10:03 Order name: Tib Fib Right XRAY; Complete Time: 10:50 [facility] 05/26 13:03 Order name: Basic Metabolic Panel; Complete Time: 13:53 [facility] 05/26 11:22 Order name: Saline Lock; Complete Time: 11:44 [facility] 05/26 11:31 Order name: NPO; Complete Time: 11:44 [facility] Administered Medications: 10:48 Drug: Ancef (cefazolin) 1 grams Route: IM; Site: left gluteus; ap3 11:52 Follow up: Response: No adverse reaction jl7 10:49 Drug: Tetanus-Diphtheria Toxoid Adult 0.5 ml {Shade Bander: [employer]. Exp: ap3 04/30/2023. Lot #: [id number]. } Route: IM; Site: left gluteus; 11:52 Follow up: Response: No adverse reaction jl7 11:52 Not Given (Physician Discretion): Marcaine (bupivacaine) (0.5 %) 20 ml 10 ml jl7 Infiltration once Disposition: 17:13 Co-signature as Attending Physician, Jr Randle MD I agree with the assessment and kdr plan of care. Disposition Summary: 05/26/21 13:50 Hospitalization Ordered Hospitalization Status: Observation [facility] Provider: José Miguel Quinteros Location: DAY SURGERY OTHER jmm Condition: Stable jmm Problem: new jmm Symptoms: are unchanged jmm Bed/Room Type: Standard [facility] Room Assignment: m Diagnosis - Laceration of the Right Leg with Foreign Body jmm Discharge Instructions: - Discharge Summary Sheet em1 Forms: - Medication Reconciliation Form jmm - SBAR form em1 Signatures: Dispatcher [employer] EDMS Jr Randle MD MD kdr Mickail, Joel, PA PA jmm Smirch, Shelby, RN RN ss Alberta Prince RN RN ap3 Mindi Barclay RN jl7 Corrections: (The following items were deleted from the chart) 11:57 11:40 COVID 19 CPL+MR.LAB.BRZ ordered. EDMS EDMS
--- NOTE | 2021-05-26 13:50 | ER ---
Nurse's Notes [facility] Name: Devaughn Moralez Age: 85 yrs Sex: Male : 1935 Arrival Date: 05/26/2021 Time: 09:54 Bed 4 Private MD: Raul Paz Diagnosis: Laceration of the Right Leg with Foreign Body Presentation: 05/26 10:00 Chief complaint: Patient states: multiple jagged lacerations noted to R calf area that ss occurred approximately 15 minute ago at home by steven abdi. No active bleeding noted at this time. Coronavirus screen: Client denies travel out of the [place] in the last 14 days. Ebola Screen: Patient denies exposure to infectious person. Patient denies travel to an Ebola-affected area in the 21 days before illness onset. Initial Sepsis Screen: Does the patient meet any 2 criteria? No. Patient's initial sepsis screen is negative. Does the patient have a suspected source of infection? No. Patient's initial sepsis screen is negative. Risk Assessment: Do you want to hurt yourself or someone else? Patient reports no desire to harm self or others. 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 ap3 13:13 Onset of symptoms was May 26, 2021. ap3 Historical: - Allergies: 10:01 No Known Allergies; ss - Home Meds: 10:01 atorvastatin Oral [Active]; ss - PMHx: 10:01 High Cholesterol; "prostate issue"; ss - Immunization history:: Client reports receiving the 2nd dose of the Covid vaccine, Last tetanus immunization: unknown. - Social history:: Smoking status: Patient denies any tobacco usage or history of. Screenin:00 Fall Risk None identified. jl7 11:01 Abuse screen: Denies threats or abuse. Nutritional screening: No deficits noted. ap3 Tuberculosis screening: No symptoms or risk factors identified. Assessment: 10:00 General: Appears in no apparent distress. uncomfortable, Behavior is calm, cooperative, jl7 appropriate for age. Pain: Denies pain. Neuro: Level of Consciousness is awake, alert, obeys commands, Oriented to person, place, time, situation. Cardiovascular: Patient's skin is warm and dry. Pulses are palpable in right dorsalis pedis artery and left dorsalis pedis artery. Respiratory: Airway is patent Respiratory effort is even, unlabored, Respiratory pattern is regular, symmetrical. Derm: Skin is pink, warm \\T\\ dry. Musculoskeletal: Range of motion: intact in all extremities. Injury Description: Laceration sustained to right calf and medial aspect of right calf is contaminated, jagged, 7.6 to 20 cm long, was sustained 30-60 minutes ago. is bleeding a small amount. 11:02 Reassessment: Patient and/or family updated on plan of care and expected duration. Pain ap3 level reassessed. Patient is alert, oriented x 3, equal unlabored respirations, skin warm/dry/pink. patient sitting up in bed visiting with visitor. patients respirations are even and unlabored at this time. patient does not appear to be in any distress. Patients bed is locked, in lowest position with side rails up x's 1. Patient has call light within reach. Vital Signs: 10:00 BP 177 / 77; Pulse 77; Resp 17; Temp 98.3(TE); Pulse Ox 98% on R/A; Weight 104.33 kg; ss Pain 2/10; 11:02 BP 162 / 82; Pulse 65; Pulse Ox 98% on R/A; ap3 11:44 BP 174 / 82; Pulse 62; Pulse Ox 100% on R/A; ap3 12:32 BP 165 / 88; Pulse 62; Resp 15; Pulse Ox 100% ; jl7 ED Course: 09:54 Patient arrived in ED. am2 09:54 Raul Paz MD is Private Physician. am2 09:54 [facility] jmm 09:54 Jr Randle MD is Attending Physician. jmm 09:56 Mindi Barclay RN is Primary Nurse. jl7 10:01 Triage completed. ss 10:01 Arm band placed on right wrist. ss 10:25 Tib Fib Right XRAY In Process Unspecified. EDMS 10:30 Wound care: to laceration located on right calf and medial aspect of right calf was jl7 cleaned with Betadine, irrigated with normal saline, dressed with Kerlix, ABD pads, Patient tolerated well. 11:01 Patient has correct armband on for positive identification. Bed in low position. Call ap3 light in reach. Side rails up X 1. Adult w/ patient. Pulse ox on. NIBP on. Door closed. Noise minimized. 11:40 Inserted saline lock: 20 gauge in left antecubital area, using aseptic technique. dh3 13:11 Report given to PACU nurses for patient to transport to the OR. ap3 13:11 No provider procedures requiring assistance completed. Patient admitted, IV remains in ap3 place. to the OR. 13:49 José Miguel Quinteros MD is Hospitalizing Provider. matthew Administered Medications: 10:48 Drug: Ancef (cefazolin) 1 grams Route: IM; Site: left gluteus; ap3 11:52 Follow up: Response: No adverse reaction jl7 10:49 Drug: Tetanus-Diphtheria Toxoid Adult 0.5 ml {Reprint S[employer]: [employer]. Exp: ap3 04/30/2023. Lot #: [id number]. } Route: IM; Site: left gluteus; 11:52 Follow up: Response: No adverse reaction jl7 11:52 Not Given (Physician Discretion): Marcaine (bupivacaine) (0.5 %) 20 ml 10 ml jl7 Infiltration once Outcome: 13:12 Admitted to OR accompanied by nurse, via stretcher, with chart. ap3 13:12 Condition: good 13:12 Discharge instructions given to patient, Instructed on need to go to the OR Demonstrated understanding of instructions. 13:50 Decision to Hospitalize by Provider. kel 13:59 Patient left the ED. ap3 Signatures: Dispatcher [employer] EDMS Luiz Begum PA PA jmm Smirch, Shelby, RN RN ss Leal, Jahala RN RN jl7 Alberta Guerin Deanna [facility] Alberta Prince RN RN 3
[2021-05-26 13:52] LABS: Potassium 4.1 mmol/L (3.5-5.1)
--- NOTE | 2021-05-26 14:18 | P.HP ---
Date of Service: 05/26/21 Chief complaint: Laceration right leg History of present Illness: 85-year-old gentleman who lacerated his right leg while riding a lawnmower and had an accident. This event occurred this morning. Patient was seen in the emergency room and evaluated. There was gross contamination with debris. There is no active bleeding. X-ray was done in the emergency room showed no foreign body or bony injuries. I was consulted for evaluation of this wound. Patient is awake and alert with no complaints at this time. Wound was irrigated in the emergency room and sterile dressing was applied. Patient was given tetanus and IV antibiotics. Patient denies any sore throat, runny nose, cough, headaches, dizziness, chest pain, fever or chills. Patient states that he was walking after the injury without difficulty. Review of systems: Otherwise unremarkable Past medical history:Hypercholesterolemia and enlarged prostate Past surgical history: Left knee surgery Allergies: Mold Social history: Patient denies smoking or drinking Family history: Noncontributory Vital signs: Vitals are stable patient is afebrile Physical exam: Awake alert oriented x3 Head and neck: Cranial nerves II through XII grossly within normal limits no neck masses no JVD throat clear neck supple Chest: Clear to auscultation Heart: S1-S2 Abdomen: Soft Extremities: Neurovascular intact Neuro: Is nonfocal Right medial leg: There is approximately a 20 x 8 cm area that is has 3 separate laceration ranging in size from 4 to 8 cm, complex in nature with jagged edges and some debris present with no evidence of any active bleeding. The laceration is through the subcutaneous tissue and may involve the muscle. Diagnostic data: X-ray reviewed--no bony injury or radiopaque foreign body identified Assessment: Complex laceration right medial leg x3 Plan/recommendation: Irrigation, debridement and closure of complex laceration x3. Patient understands risk, benefits alternatives and agrees to procedure. CC: Dr. Paz's office
--- NOTE | 2021-05-26 15:17 | P.BOP ---
Preoperative diagnosis: Complex laceration right leg x3 Postoperative diagnosis: Same Primary procedure: Pulse irrigation, debridement, repair of complex laceration right leg x3 Secondary procedure: 4 x 8 cm, 3 x 6 cm, 3 x 6 cm Outsole Cementer: NONE,NONE Estimated blood loss: Minimal Specimen: Debridement tissue Findings: As above Anesthesia: General Complications: None Transferred to: Recovery Room Condition: Good
--- NOTE | 2021-05-26 15:23 | P.OP ---
Date of Service: 05/26/21 Preop diagnosis: Complex laceration right leg x3 Postop diagnosis: Same Procedure performed: Pulse irrigation, debridement, repair of complex laceration right leg x3--4 x 8 cm, 3 x 6 cm, 3 x 6 cm Surgeon: Aldair RAYMUNDO Cylinder Sander Operator: None Estimated blood loss: Minimal Specimen: Debridement tissue Findings: As above Anesthesia: General Complications: None Drains: None Fluids and blood products: Not applicable Disposition: Recovery room Operative note: Patient brought to the OR and placed in the supine position. General anesthesia begun. Patient prepped and draped in the usual sterile fashion. Marcaine 0.5% infiltrated locally. Pulse irrigation utilized with saline to irrigate all 3 complex wounds--which ranged in size from 4 x 8 cm to 3 x 6 cm. The superior wound was 3 x 6 cm, the middle wound was 4 x 8 cm, and the distal wound was 3 x 6 cm. All of the wounds had jagged edges and missing skin in certain areas. All the debris in the wound was removed with the pulse irrigation. Rough edges were debrided sharply with cautery and scalpel. Bleeding was controlled with cautery. Flaps were mobilized. And then 3-0 chromic and 2-0 chromic was reapproximate the subcutaneous tissue and loosely closed all skin. Sterile dressing applied. Patient awakened and taken to recovery in good general condition. CC: Dr. Paz's office
[2021-05-26 15:27] VITALS: O2SAT 100
[2021-05-26 16:07] VITALS: BP 152/80; TEMP 97.9
== END ==
LOC: ER 09:53 → OR 13:50 → ER 16:30
PROVIDERS: ATTEND Surgery
PROC: 0JQN0ZZ Repair Right Lower Leg Subcutaneous Tissue and Fascia, Open Approach (ICD-10-PCS; principal; 2021-05-26 14:00)
DX: S81.811A Laceration without foreign body, right lower leg, initial encounter (principal); X58.XXXA Exposure to other specified factors, initial encounter; Y93.H9 Activity, other involving exterior property and land maintenance, building and construction; Y92.9 Unspecified place or not applicable; N40.0 Benign prostatic hyperplasia without lower urinary tract symptoms; E78.00 Pure hypercholesterolemia, unspecified; Z20.822 Contact with and (suspected) exposure to COVID-19
CPT/HCPCS: 80048; 36415; 88304; 73590; 90471; 90714; 96372; 99285; 12002 ×3; U0003; J2704; J2370; J3010; J1100; J7120; J2405; J0690 ×2

== ENCOUNTER 2023-12-18 06:54 | Day surgery (SDC) | payer OTHER ==
[2023-12-12 11:18] LABS: Absolute Eosinophils 0.1 K/uL (0-0.5); Absolute Lymphocytes (CBC) 1.3 K/uL (0.7-4.9); Absolute Monocytes 0.6 K/uL (0.1-1.3); Absolute Neutrophil 3.7 K/uL (1.8-8.0); Basophils % 0.7 % (0-1.3); Eosinophils % 1.3 % (0-4.4); Hematocrit 42.1 % (39.6-49.0); Hemoglobin 14.1 g/dL (13.6-17.9); MCHC 33.4 g/dL (32.0-36.0); MCV 98.7 fL (80-100); MPV 7.3 fL (7.6-11.3); Monocytes % 10.2 % (3.3-12.3); Neutrophils % 64.8 % (41.7-73.7); Platelets 168 thou/uL (152-406); RBC Red Blood Cell Count 4.26 M/uL (4.33-5.43); Red Cell Distribution Width 14.6 % (12.1-15.2)
[2023-12-12 11:19] LABS: PT Prothrombin Time 12.3 SECONDS (9.4-12.5); Protime INR 1.1
[2023-12-12 11:26] LABS: Anion Gap 10.5 mEq/L (5.0-15.0); Potassium 3.5 mEq/L (3.5-5.1)
--- NOTE | 2023-12-12 12:36 | RAD REPORT ---
EXAMINATION: TWO VIEW CHEST XR CLINICAL INDICATION: Male, 88 years old. BR MAIN pre op pending urolift. Hypertension TECHNIQUE: 2 view radiographs of the chest were performed. COMPARISON: No prior exam. FINDINGS: The lungs are well inflated and clear. No pneumothorax or sizable effusion. The heart is normal in si ze. Mediastinal contours are unremarkable. IMPRESSION: No acute or significant abnormalities.
[2023-12-18] MEDS: Ringers Lactate 1,000 ML IV ONE (07:15)
[2023-12-18] MEDS ORDERED: FENTANYL CITR 100 MCG/2 ML ONE (08:27)
[2023-12-18] MEDS ORDERED: propofoL 200 MG/20 ML VIAL IV ONE (08:27)
[2023-12-18] MEDS ORDERED: ONDANSETRON 4 MG/2 ML VIAL ONE (08:27)
[2023-12-18] MEDS: CEFAZOLIN SODIUM 2 GM/VIAL ONE (08:46)
[2023-12-18] MEDS ORDERED: FUROSEMIDE 20 MG/ 2ML VIAL ONE (09:39)
[2023-12-18] MEDS ORDERED: CODEINE 30MG/APAP 300MG TAB PO PRN (10:20)
[2023-12-18] MEDS ORDERED: PHENAZOPYRIDINE 100MG TAB PO ONE (10:20)
[2023-12-18 11:55] VITALS: BP 143/71; TEMP 97; O2SAT 96
--- NOTE | 2023-12-18 16:18 | P.OP ---
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 He suggested he had approximately 20 pounds of weight gain over the last several days because of fluid retention and had some lower extremity swelling. I examined him preoperatively, and he had 1+ pitting edema in the left lower extremity greater than the right. He had a slight degree of tenderness with deep palpation in the left that was not present on the right, but no definitive Homans' sign. Procedure note: The patient was consented in the preoperative holding area before being transferred to the operative suite where general anesthesia was induced. He was given Ancef 2 g IV antimicrobial prophylaxis, and pneumoboots were provided for DVT prophylaxis. He was placed in the lithotomy position, padded and secured to the table appropriately. His genitalia was prepped with Hibiclens and he was draped in standard fashion. The case was begun using a 20 Yemeni UroLift sheath and a visual obturator to traverse the urethra and into his bladder after navigating through some nodular adenomatous regrowth of his prostate present from apex to base. I switched the visual obturator for the first UroLift delivery device and an implant. I then targeted the patient's left bladder neck anteriorly, where obvious resection had been performed, but there was some intraluminal intrusion. Beneath the 3 o'clock position from anterior to posterior, there was some adenomatous intrusion, but this was below the desired anterior channel. As a result, targeting the tissue at around the 2 o'clock position, I elevated the bladder neck and angle the scope 15 degrees laterally approximately 1.5 to 2 cm distal to the bladder neck opening. I pulled the trigger once delivering the needle through the substance of the prostate before compressing the tissue completely and pulling the trigger a second time delivering the capsular tab and partially retracting the needle. A third pull of the trigger did completely retract the needle and began to tension the suture. I then advanced the scope back toward the midline and 2 to 3 mm toward the bladder neck opening until the white line of the monofilament was centered in the delivery bay. At this point, I pulled the trigger a fourth time delivering the urethral end piece which did beautifully lateralized the tissue in the bladder neck on the left side and the tail of the suture. I then advanced the scope back into his bladder and switched the UroLift delivery device for a second implant. I then targeted this implant at the apex of the prostate at the level of the verumontanum on the left. This implant was placed at around the 2 to 3 o'clock position targeting and lifting some adenomatous intrusion from that left side. Once that implant had been placed, I then placed a third implant and some contralateral adenomatous regrowth at the level of the verumontanum on the right side. I surveyed the channel created, and the intraluminal intrusion largely emanating from the patient's right lateral wall of the prostate inferior laterally at the bladder neck with the previously described left posterolateral intrusion at the bladder neck observed. So I utilized a UL 2 ATC device starting at the bladder neck tissue on the left, grasping that tissue and pulling it into the prostatic urethral lumen before compressing it laterally against the lateral wall of the prostate pulling it back into the urethral lumen before pulling the trigger and deploying the implant at around the 3 o'clock position successfully. This did beautifully lateralized that median lobar tissue. I then switched for a new UL 2 ATC device and targeted a similar adenomatous growth on the right side, beautifully pulling that lobar tissue into the prostatic urethra and lateralizing it to the 9 o'clock position, but after 3 poles of the trigger, the implant did pull-through and failed to successfully deploy. At this point, 5 implants had been used, for successfully placed with two UL 2 devices on the patient's left and 1 UL 2 ATC device on the left with 1 UL 2 device on the right and 1 pull-through UL 2 ATC device used on the right. Because there was still some adenomatous intrusion emanating from the patient's right lateral wall mostly in the mid zone at the base of the prostate, I placed a 6 implant into that tissue beautifully lateralizing it. I then surveyed the channel created, and more proximal to that implant placed, there was still some lateral lobar intrusion at the bladder neck making the channel slightly asymmetric; so I utilized the seventh and final implant targeting that tissue more anteriorly and closer to the bladder neck opening ultimately beautifully creating a continuous anterior channel visible from the verumontanum all the way into the bladder. As a result, I left his bladder full of fluid and remove the scope and delivery device. I then passed an 18 Yemeni coud catheter into his bladder with ease before placing 25 cc of sterile water into the balloon. The drainage was light pink to clear; so the patient was taken out of the lithotomy position. The catheter was connected to a leg bag, and he was transferred to a stretcher before being transferred to the recovery room in good condition. Upon arrival into the recovery room, once his blood pressure teofilo back into a healthy range 120s systolic, he was given 20 mg Lasix IV to encourage diuresis given the bilateral lower extremity 1+ edema observed. Complications: None Discharge disposition: He will be standard UroLift pathway with follow-up to be established in about 1 month's time.
== END 2023-12-18 11:32 | disposition home or self-care (01) ==
LOC: OR 06:54
PROVIDERS: ATTEND Urology
PROC: 0T7D8DZ Dilation of Urethra with Intraluminal Device, Via Natural or Artificial Opening Endoscopic (ICD-10-PCS; principal; 2023-12-18 08:15)
DX: N40.1 Benign prostatic hyperplasia with lower urinary tract symptoms (principal); R60.0 Localized edema; E78.5 Hyperlipidemia, unspecified; I49.9 Cardiac arrhythmia, unspecified; Z90.79 Acquired absence of other genital organ(s)
CPT/HCPCS: 87088; 85025; 87086; 80048; 36415; 85610; 71046; 52441; 52442 ×5; J2704; J1940; J3010; J2405; J7120

== ENCOUNTER 2024-03-18 10:10 | Day surgery (SDC) | payer OTHER ==
[2024-03-13 10:17] LABS: Absolute Eosinophils 0.1 K/uL (0-0.5); Absolute Lymphocytes (CBC) 1.4 K/uL (0.7-4.9); Absolute Monocytes 0.6 K/uL (0.1-1.3); Absolute Neutrophil 3.3 K/uL (1.8-8.0); Basophils % 0.8 % (0-1.3); Eosinophils % 1.9 % (0-4.4); Hematocrit 41.7 % (39.6-49.0); Hemoglobin 14.5 g/dL (13.6-17.9); Lymphocytes % 24.9 % (15.3-44.8); MCH 33.3 pg (27.0-35.0); MCHC 34.8 g/dL (32.0-36.0); MCV 95.7 fL (80-100); Monocytes % 11.2 % (3.3-12.3); Neutrophils % 61.2 % (41.7-73.7); Platelets 171 thou/uL (152-406); RBC Red Blood Cell Count 4.35 M/uL (4.33-5.43); Red Cell Distribution Width 14.5 % (12.1-15.2)
[2024-03-13 10:18] LABS: PT Prothrombin Time 12.2 SECONDS (9.4-12.5); Protime INR 1.16
--- NOTE | 2024-03-13 12:58 | EKG ---
Test Date: 2024-03-13 Test Time: 10:52:48 Craft Recruiter: BIPIN MEASUREMENT RESULTS: Intervals: Rate: 74 WY: 244 QRSD: 88 QT: 388 QTc: 430 [place]: P: 47 W[place]: 244 QRS: -57 T: 76 INTERPRETIVE STATEMENTS: Sinus rhythm with 1st degree AV block Left axis deviation Abnormal ECG Compared to ECG 12/21/2016 16:22:32 Left-axis deviation now present Myocardial infarct finding no longer present Electronically Signed On 03-13-24 12:57:07 [employer] by Avinash Guardado
[2024-03-18] MEDS: Ringers Lactate 1,000 ML IV ONE (10:27)
[2024-03-18] MEDS ORDERED: propofoL 200 MG/20 ML VIAL IV ONE (10:28)
[2024-03-18] MEDS ORDERED: ROCURONIUM 50 MG/5 ML VIAL IV ONE (10:28)
[2024-03-18] MEDS ORDERED: FENTANYL CITR 100 MCG/2 ML ONE (10:28)
[2024-03-18] MEDS ORDERED: ONDANSETRON 4 MG/2 ML VIAL ONE (10:28)
[2024-03-18] MEDS ORDERED: LIDOCAINE 2% MPF 5 ML VIAL ONE (10:28)
[2024-03-18] MEDS ORDERED: SUGAMMADEX SODIUM 200 MG/2 ML VIAL IV ONE (10:32)
[2024-03-18] MEDS ORDERED: dexAMETHasone 4 MG/ML VIAL ONE (11:06)
[2024-03-18] MEDS ORDERED: EPHEDRINE SULF 50 MG/ML VIAL ONE (11:09)
[2024-03-18] MEDS: CEFAZOLIN SODIUM 2 GM/VIAL ONE (11:12)
[2024-03-18] MEDS: BUPIVACAINE 0.5% PF 10 ML VIAL ONE (11:37)
[2024-03-18] MEDS ORDERED: BACITRACIN OINTMENT 14 GM TUBE TOP ONE (11:56)
[2024-03-18 12:33] VITALS: TEMP 97.9
[2024-03-18 13:33] VITALS: BP 146/74; O2SAT 96
[2024-03-18] MEDS ORDERED: CODEINE 30MG/APAP 300MG TAB ONE (13:45)
[2024-03-18] MEDS: CODEINE 30MG/APAP 300MG TAB PO PRN (13:48)
--- NOTE | 2024-03-18 14:43 | P.OP ---
Date of Service: 03/18/24 Preoperative diagnosis: Right hydrocele Postoperative diagnosis: Right hydrocele Principal procedure: Jaboulez hydrocelectomy Indication for procedure: 88-year-old gentleman presented to the urology clinic with incidental complaint of some bothersome right hemiscrotal swelling. Procedure note: The patient was consented in the preoperative holding area before being transferred to the operative suite where general anesthesia was induced. He was given Ancef 2 g IV antimicrobial prophylaxis, and pneumoboots were provided for DVT prophylaxis. He was placed spine on the procedure table, and his genitalia was shaved, prepped with Betadine, and draped in standard fashion. An approximately 2 to 2.5 cm Agapito's line incision was marked in the anterior right hemiscrotum. I injected half percent Marcaine subcutaneously beneath the incision. Then using a 15 blade, I incised the skin. Electrocautery was used to divide the subcutaneous tissues and the dartos layers until the tunica vaginalis parietal layer was visible. I then dissected superior and inferior to the incision freeing the hydrocele sac from its surrounding dartos layers sharply and using electrocautery. I then utilized an 18-gauge needle to decompress the hydrocele sac significantly ultimately to make it small enough to deliver it, along with the testis, through the incision site. Once this was done, I continued to dissect the remaining dartos attachments off of the tunica vaginalis parietal layer. I then incised in an anterior posterior direction the parietal layer of tunica vaginalis releasing a significant quantity of residual hydrocele fluid. I then divided the sac all the way to the level of the cord structures anteriorly and the junction of the body of the epididymis with the testis posteriorly. I then removed a significant quantity of the hydrocele sac which was sent for pathologic analysis. I also removed the appendix testis and appendix epididymis, which were both visible attached to his right testis. Electrocautery was used to ligate and divide these. I then folded the remainder of the sac around posterior to the cord structures, and using Allis clamps to hold them in place, I used 3-0 Vicryl suture to perform a running anastomosis of the retrograde-folded hydrocele sac remnant. I then irrigated the testis and tunica vaginalis as well as the internal components of the scrotum before using bipolar pinpoint fulguration of all bleeding vessels present within the dartos layers of the scrotum. The testis was then delivered back into the scrotal sac, and the subcutaneous and dartos tissues of the scrotum were closed using 3-0 Vicryl suture. The skin and subcutaneous tissues were then closed in a running fashion using 3-0 Monocryl suture. Quarter percent Marcaine was instilled again subcutaneously for local anesthesia. Fluff gauze and a jockstrap were then applied, and he was awakened from general anesthesia. He was then transferred to a stretcher before being transferred to the recovery room in good condition. Complications: None Discharge disposition: Standard follow-up should be established per routine relative to the management of his OAB LUTS on Myrbetriq 25, which may be an adequate, but also interval assessment of his progress of healing status post hydrocelectomy on the right.
== END 2024-03-18 14:39 | disposition home or self-care (01) ==
LOC: OR 10:10
PROVIDERS: ATTEND Urology
PROC: 0VB60ZZ Excision of Right Tunica Vaginalis, Open Approach (ICD-10-PCS; principal; 2024-03-18 10:30)
DX: N43.3 Hydrocele, unspecified (principal); K40.21 Bilateral inguinal hernia, without obstruction or gangrene, recurrent
CPT/HCPCS: 93005; 87088; 85025; 87086; 80048; 36415; 85610; 88302; 55040; J2704; J1100; J2003; J3010; J2405; J7120